=== PATIENT | male | born 1955 | race Caucasian/White ===

== ENCOUNTER 2019-09-14 06:34 | Inpatient (IN) | payer MEDICARE ==
--- NOTE | 2019-09-14 07:14 | ED ---
Abdominal Pain HPI - General Chief Complaint: Abdominal Pain Stated Complaint: Abd Pain Time Seen by Provider: 09/14/19 06:44 Source: patient, EMS Mode of arrival: EMS Limitations: no limitations - History of Present Illness Initial Comments: Patient is a 63-year-old male, history of hypertension, diabetes, heart disease, presenting to the emergency Department as a transfer from [facility] secondary to epigastric pain, distal ureteral stone, and concerned for gastric outlet syndrome. Patient presented to [facility] yesterday evening after dinner with the sudden onset of epigastric pain. Patient states he had some grilled chicken, some vegetables and then developed a sudden onset of epigastric pain shortly after. Patient describes the pain as constant, achy with a band like tightness around his upper abdomen. He also has some left flank pain. Patient states he has had kidney stones in the past and thought that could've been at but the severe nature it felt different so he wanted to be seen. He denied having any chest pain, shortness of breath, vomiting or diarrhea. He denies any previous abdominal surgeries. Computed tomography scan revealed a 5 mm stone in the mid ureter, a distended stomach with concern for gastric outlet obstruction. She was given fluids, pain control. He is currently describing the pain stone epigastric area, rates it a 5 out of 6. He denies any nausea at this time but states he does get occasional waves of it. He denies any recent fever or chills. He denies any current chest pain or shortness of breath. He has no further complaints at this time. Upon arrival to the ER, patient did arrive febrile to 100, slightly hypertensive at 187/95, rest of vitals are normal. - Related Data Home Medications Medication Instructions Recorded Confirmed Aspirin EC [Ecotrin] 325 mg PO DAILY 09/14/19 09/14/19 Atorvastatin [Lipitor] 20 mg PO DAILY 09/14/19 09/14/19 Benazepril HCl 40 mg PO DAILY 09/14/19 09/14/19 Citalopram Hydrobromide [CeleXA] 40 mg PO DAILY 09/14/19 09/14/19 Dulaglutide [Trulicity] 1.5 mg SQ TH 09/14/19 09/14/19 Fenofibrate Nanocrystallized 145 mg PO DAILY 09/14/19 09/14/19 [Fenofibrate] Finasteride [Proscar] 5 mg PO DAILY 09/14/19 09/14/19 Furosemide [Lasix] 40 mg PO DAILY 09/14/19 09/14/19 Insulin Aspart Protam & Aspart 65 unit SQ BID 09/14/19 09/14/19 [NovoLOG MIX 70-30 Flexpen] Metoprolol Succinate [Toprol XL] 100 mg PO DAILY 09/14/19 09/14/19 Pantoprazole Sodium [Protonix] 40 mg PO DAILY 09/14/19 09/14/19 Potassium Chloride [Klor-Con 10] 20 meq PO DAILY 09/14/19 09/14/19 Tamsulosin [Flomax] 0.4 mg PO DAILY 09/14/19 09/14/19 metFORMIN HCL [Glucophage] 1,000 mg PO BID 09/14/19 09/14/19 Previous Rx's Medication Instructions Recorded Hydrocodone/Acetaminophen [[place] 1 tab PO Q6HR PRN #10 tab 09/16/19 5-325] Levofloxacin [Levaquin] 500 mg PO DAILY 5 Days #5 tab 09/17/19 Allergies Allergy/AdvReac Type Severity Reaction Status Date / Time No Known Allergies Allergy Verified 09/14/19 07:30 Review of Systems ROS Statement: Those systems with pertinent positive or pertinent negative responses have been documented in the HPI. ROS Other: All systems not noted in ROS Statement are negative. Past Medical History Past Medical History: Asthma, Diabetes Mellitus History of Any Multi-Drug Resistant Organisms: None Reported Past Surgical History: Heart Catheterization With Stent Smoking Status: Never smoker Past Alcohol Use History: None Reported Past Drug Use History: None Reported - Past Family History Father Additional Family Medical History / Comment(s): Father at age 69 from a choking episode. Mother Additional Family Medical History / Comment(s): Mother is alive at 86 with no major medical problems. Sister(s) Additional Family Medical History / Comment(s): Patient has one sister with spinal problems. Patient has one brother with diabetes and coronary artery disease. Patient has 2 children, girls with no major medical problems. General Exam - General Exam Comments Initial Comments: GENERAL: Patient is well-developed and well-nourished. Patient is nontoxic and in no acute distress, does appear uncomfortable. HEAD: Atraumatic, normocephalic. EYES: Pupils equal round and reactive to light, extraocular movements intact, sclera anicteric, conjunctiva are normal. Eyelids were unremarkable. ENT: TMs normal, nares patent, oropharynx clear without exudates. Moist mucous membranes. NECK: Normal range of motion, supple without lymphadenopathy or JVD. LUNGS: Unlabored respirations. Breath sounds clear to auscultation bilaterally and equal. No wheezes rales or rhonchi. HEART: Regular rate and rhythm without murmurs, rubs or gallops. ABDOMEN: Abdomen is distended, hard over the epigastric area, tender over the entire upper abdomen, left side of the abdomen. Normoactive bowel sounds. No rebound. : Deferred MUSCULOSKELETAL: Normal extremities with adequate strength and normal range of motion, no pitting or edema. No clubbing or cyanosis. NEUROLOGICAL: Patient is alert and oriented x 3. Motor and sensory are also intact. Cranial nerves II through XII grossly intact. Normal speech, normal gait. Symmetrical smile. PSYCH: Normal mood, normal affect. SKIN: Warm, Dry, normal turgor, no rashes or lesions noted. Limitations: no limitations Course Vital Signs 09/14/19 09/14/19 09/14/19 06:42 07:29 09:18 Temperature 100 F H 100.2 F H 99.0 F Pulse Rate 82 90 91 Respiratory 18 18 18 Rate Blood Pressure 187/95 178/98 144/84 O2 Sat by Pulse 95 95 95 Oximetry Medical Decision Making - Medical Decision Making Patient is a 63-year-old male here as a transfer from [facility] for possible gastric outlet obstruction as well as a 5 mm left distal ureteral stone. Patient did arrive febrile to 100.2. Patient has epigastric distention, pain, left flank pain. Labs and imaging were reviewed from [facility]. We did repeat the labs showed a white count of 12, glucose was elevated at 200. Patient is pain has been controlled with medicine, we did give him a gram of Rocephin as well as ibuprofen by IV for fever. Start him on fluids Patient will be admitted with GI consult. Patient was accepted by Dr. Rock. Case discussed with Dr. Oden. - Lab Data Result diagrams: 09/17/19 07:19 09/16/19 07:30 Lab Results 07/20/20 07/20/20 07/20/20 Range/Units 07:49 07:49 07:49 WBC 12.8 H (3.8-10.6) k/uL RBC 5.59 (4.30-5.90) m/uL Hgb 15.2 (13.0-17.5) gm/dL Hct 47.9 (39.0-53.0) % MCV 85.6 (80.0-100.0) fL MCH 27.2 (25.0-35.0) pg MCHC 31.8 (31.0-37.0) g/dL RDW 13.7 (11.5-15.5) % Plt Count 169 (150-450) k/uL Neutrophils % 88 % Lymphocytes % 4 % Monocytes % 6 % Eosinophils % 1 % Basophils % 0 % Neutrophils # 11.3 H (1.3-7.7) k/uL Lymphocytes # 0.5 L (1.0-4.8) k/uL Monocytes # 0.7 (0-1.0) k/uL Eosinophils # 0.1 (0-0.7) k/uL Basophils # 0.0 (0-0.2) k/uL Sodium 137 (137-145) mmol/L Potassium 4.5 (3.5-5.1) mmol/L Chloride 105 (98-107) mmol/L Carbon Dioxide 23 (22-30) mmol/L Anion Gap 9 mmol/L BUN 14 (9-20) mg/dL Creatinine 0.81 (0.66-1.25) mg/dL Est GFR (CKD-EPI)AfAm >90 (>60 ml/min/1.73 sqM) Est GFR (CKD-EPI)NonAf >90 (>60 ml/min/1.73 sqM) Glucose 224 H (74-99) mg/dL Plasma Lactic Acid [place] 1.8 (0.7-2.0) mmol/L Calcium 9.1 (8.4-10.2) mg/dL Total Bilirubin 0.8 (0.2-1.3) mg/dL AST 31 (17-59) U/L ALT 33 (4-49) U/L Alkaline Phosphatase 84 (38-126) U/L Total Protein 7.1 (6.3-8.2) g/dL Albumin 4.5 (3.5-5.0) g/dL Lipase 34 (23-300) U/L Urine Color Urine Appearance (Clear) Urine pH (5.0-8.0) Ur Specific [place] (1.001-1.035) Urine Protein (Negative) Urine Glucose (UA) (Negative) Urine Ketones (Negative) Urine Blood (Negative) Urine Nitrite (Negative) Urine Bilirubin (Negative) Urine Urobilinogen (<2.0) mg/dL Ur Leukocyte Esterase (Negative) Urine RBC (0-5) /hpf Urine WBC (0-5) /hpf Ur Squamous Epith Cells (0-4) /hpf Urine Mucus (None) /hpf 09/14/19 Range/Units 08:03 WBC (3.8-10.6) k/uL RBC (4.30-5.90) m/uL Hgb (13.0-17.5) gm/dL Hct (39.0-53.0) % MCV (80.0-100.0) fL MCH (25.0-35.0) pg MCHC (31.0-37.0) g/dL RDW (11.5-15.5) % Plt Count (150-450) k/uL Neutrophils % % Lymphocytes % % Monocytes % % Eosinophils % % Basophils % % Neutrophils # (1.3-7.7) k/uL Lymphocytes # (1.0-4.8) k/uL Monocytes # (0-1.0) k/uL Eosinophils # (0-0.7) k/uL Basophils # (0-0.2) k/uL Sodium (137-145) mmol/L Potassium (3.5-5.1) mmol/L Chloride (98-107) mmol/L Carbon Dioxide (22-30) mmol/L Anion Gap mmol/L BUN (9-20) mg/dL Creatinine (0.66-1.25) mg/dL Est GFR (CKD-EPI)AfAm (>60 ml/min/1.73 sqM) Est GFR (CKD-EPI)NonAf (>60 ml/min/1.73 sqM) Glucose (74-99) mg/dL Plasma Lactic Acid Barry (0.7-2.0) mmol/L Calcium (8.4-10.2) mg/dL Total Bilirubin (0.2-1.3) mg/dL AST (17-59) U/L ALT (4-49) U/L Alkaline Phosphatase (38-126) U/L Total Protein (6.3-8.2) g/dL Albumin (3.5-5.0) g/dL Lipase (23-300) U/L Urine Color Yellow Urine Appearance Clear (Clear) Urine pH 6.5 (5.0-8.0) Ur Specific [place] 1.040 H (1.001-1.035) Urine Protein 3+ H (Negative) Urine Glucose (UA) 3+ H (Negative) Urine Ketones 1+ H (Negative) Urine Blood Small H (Negative) Urine Nitrite Negative (Negative) Urine Bilirubin Negative (Negative) Urine Urobilinogen <2.0 (<2.0) mg/dL Ur Leukocyte Esterase Negative (Negative) Urine RBC 20 H (0-5) /hpf Urine WBC 3 (0-5) /hpf Ur Squamous Epith Cells <1 (0-4) /hpf Urine Mucus Rare H (None) /hpf Disposition Clinical Impression: Epigastric pain, Left ureteral stone, Febrile Disposition: ADMITTED IP TO THIS [facility] Condition: Good Decision Date: 09/14/19 Decision Time: 09:09
[2019-09-14] MEDS ORDERED: cefTRIAXone IN SWFI 1,000 MG/10 ML SYRINGE IVP STA (07:44)
[2019-09-14] MEDS ORDERED: IBUPROFEN IV 400 MG in SODIUM CHLORIDE 0.9% 100 ML IV ONE (07:45)
[2019-09-14 07:57] LABS: Basophils % (A) 0 %; Eosinophils # (A) 0.1 k/uL (0-0.7); Eosinophils % (A) 1 %; HCT 47.9 % (39.0-53.0); HGB 15.2 gm/dL (13.0-17.5); Lymphocytes # (A) 0.5 k/uL (1.0-4.8); Lymphocytes % (A) 4 %; MCH 27.2 pg (25.0-35.0); MCHC 31.8 g/dL (31.0-37.0); MCV 85.6 fL (80.0-100.0); Mean Platelet Volume 6.9; Monocytes # (A) 0.7 k/uL (0-1.0); Monocytes % (A) 6 %; Neutrophils # (A) 11.3 k/uL (1.3-7.7); Neutrophils % (A) 88 %; Platelet Count 169 k/uL (150-450); RBC 5.59 m/uL (4.30-5.90); RDW 13.7 % (11.5-15.5); WBC 12.8 k/uL (3.8-10.6)
[2019-09-14 08:09] LABS: ALT 33 U/L (4-49); AST 31 U/L (17-59); African American GFR (CKD) >90 (>60 ml/min/1.73 sqM); Albumin 4.5 g/dL (3.5-5.0); Alkaline Phosphatase 84 U/L (38-126); Anion Gap 9 mmol/L; Blood Urea Nitrogen 14 mg/dL (9-20); Calcium 9.1 mg/dL (8.4-10.2); Carbon Dioxide 23 mmol/L (22-30); Chloride 105 mmol/L (98-107); Glucose 224 mg/dL (74-99); Non-African American GFR(CKD) >90 (>60 ml/min/1.73 sqM); Potassium 4.5 mmol/L (3.5-5.1); Sodium 137 mmol/L (137-145); Total Bilirubin 0.8 mg/dL (0.2-1.3); Total Protein 7.1 g/dL (6.3-8.2)
[2019-09-14 08:11] LABS: Appearance,Urine Clear (Clear); Bilirubin,Urine Negative (Negative); Blood,Urine Small (Negative); Color,Urine Yellow; Glucose,Urine (UA) 3+ (Negative); Ketones,Urine 1+ (Negative); Leukocyte Esterase,Urine Negative (Negative); Mucus,Urine Rare /hpf; Nitrite,Urine Negative (Negative); PH, Urine 6.5 (5.0-8.0); Protein,Urine 3+ (Negative); RBC,Urine 20 /hpf (0-5); Squamous Epithelial Cell,Urine <1 /hpf (0-4); Urobilinogen,Urine <2.0 mg/dL (<2.0); WBC,Urine 3 /hpf (0-5)
[2019-09-14] MEDS ORDERED: SODIUM CHLORIDE 0.9% 500 ML 500 ML IV STA (08:52)
[2019-09-14] MEDS ORDERED: NALOXONE 0.4 MG/ML 1 ML VIAL IV PRN (09:04)
[2019-09-14] MEDS ORDERED: ONDANSETRON 4 MG/2 ML VIAL IVP PRN (09:04)
[2019-09-14] MEDS: KETOROLAC 30 MG/ML 1 ML VIAL IVP PRN ×2 (09:15→15:17)
[2019-09-14] MEDS: SODIUM CHLORIDE 0.9% 1,000 ML IV SCH ×2 (09:17→20:50)
--- NOTE | 2019-09-14 10:03 | US ---
EXAMINATION TYPE: US abdomen limited DATE OF EXAM: 09/14/2019 COMPARISON: NONE CLINICAL HISTORY: RUQ pain. RUQ pain exam limited due to body habitus EXAM MEASUREMENTS: Liver Length: 20.5 cm Gallbladder Wall: .3 cm CBD: .4 cm Right Kidney: 13.6 x 7.1 x 5.5 cm Pancreas: Obscured by bowel gas Liver: Increased attenuation limited due to body habitus Gallbladder: No stones seen Evidence for sonographic Fitch's sign: No CBD: wnl Right Kidney: Hypoechoic area upper pole 2.0 x 1.7 x 2.3 cm IMPRESSION: Exam is limited. Correlate for hepatic steatosis, there is hepatomegaly. Probable cortica l cyst right kidney.
--- NOTE | 2019-09-14 12:10 | P.GSCN ---
History of Present Illness Consult date: 09/14/19 History of present illness: The patient is a 63-year-old gentleman transferred from [facility] because of abdominal pain, epigastric is a possible gastric outlet obstruction. The patient also had a midureteral stone on the left side that we are asked to evaluate. Patient presented to the emergency room in [place] with epigastric and right upper quadrant pain and nausea and vomiting. He has had mid spine low back pain that he thought was due to his back. The patient is morbidly obese. He did pass a stone out 7 years ago. He has had no flank pain and no left lower quadrant pain. The CAT scan showed a 5 mm mid ureteral stone on the left without hydronephrosis. There are no other stones. He does have renal cysts. He does have enlarged prostate with some indentation on the bladder. The patient is asymptomatic at present. There are no voiding issues or back issues. He did perhaps have some blood a few days ago in the urine. He had an ultras ound of the abdomen here which showed a renal cyst but otherwise no hydronephrosis. Review of Systems - EENT Ears, nose, mouth and throat: Reports dysphagia - Gastrointestinal Reports abdominal pain, Reports belching, Reports bloating - Genitourinary Reports as per HPI - Musculoskeletal Reports low back pain Past Medical History Past Medical History: Atrial Fibrillation, Asthma, Coronary Artery Disease (CAD), Diabetes Mellitus, Hyperlipidemia, Hypertension History of Any Multi-Drug Resistant Organisms: None Reported Past Surgical History: Heart Catheterization With Stent Past Anesthesia/Blood Transfusion Reactions: No Reported Reaction Date of Last Stent Placement:: 05/30/2012 Smoking Status: Never smoker Past Alcohol Use History: None Reported Past Drug Use History: None Reported Medications and Allergies Home Medications Medication Instructions Recorded Confirmed Type Aspirin EC [Ecotrin] 325 mg PO DAILY 09/14/19 09/14/19 History Atorvastatin [Lipitor] 20 mg PO DAILY 09/14/19 09/14/19 History Benazepril HCl 40 mg PO DAILY 09/14/19 09/14/19 History Citalopram Hydrobromide [CeleXA] 40 mg PO DAILY 09/14/19 09/14/19 History Dulaglutide [Trulicity] 1.5 mg SQ TH 09/14/19 09/14/19 History Fenofibrate Nanocrystallized 145 mg PO DAILY 09/14/19 09/14/19 History [Fenofibrate] Finasteride [Proscar] 5 mg PO DAILY 09/14/19 09/14/19 History Furosemide [Lasix] 40 mg PO DAILY 09/14/19 09/14/19 History Insulin Aspart Protam & Aspart 65 unit SQ BID 09/14/19 09/14/19 History [NovoLOG MIX 70-30 Flexpen] Metoprolol Succinate [Toprol XL] 100 mg PO DAILY 09/14/19 09/14/19 History Pantoprazole Sodium [Protonix] 40 mg PO DAILY 09/14/19 09/14/19 History Potassium Chloride [Klor-Con 10] 20 meq PO DAILY 09/14/19 09/14/19 History Tamsulosin [Flomax] 0.4 mg PO DAILY 09/14/19 09/14/19 History metFORMIN HCL [Glucophage] 1,000 mg PO BID 09/14/19 09/14/19 History Allergies Allergy/AdvReac Type Severity Reaction Status Date / Time No Known Allergies Allergy Verified 09/14/19 07:30 Surgical - Exam Vital Signs Temp Pulse Resp BP Pulse Ox 100 F H 82 18 187/95 95 09/14/19 06:42 09/14/19 06:42 09/14/19 06:42 09/14/19 06:42 09/14/19 06:42 - General well developed, well nourished, obese - Eyes PERRL - ENT no hearing loss - Neck no masses, trachea midline - Respiratory normal expansion, normal respiratory effort - Cardiovascular Rhythm: regular - Abdomen Abdomen: soft, non tender, distended Hernia: none - Genitourinary normal penis with no external lesions, testicles present - Integumentary no rash, no growths - Neurologic normal coordination, normal sensation - Musculoskeletal normal gait, normal posture - Psychiatric oriented to time, oriented to person, oriented to place, speech is normal, memory intact Results - Labs 09/14/19 07:49 09/14/19 07:49 Abnormal Lab Results - Last 24 Hours (Table) 09/14/19 09/14/19 09/14/19 Range/Units 07:49 07:49 08:03 WBC 12.8 H (3.8-10.6) k/uL Neutrophils # 11.3 H (1.3-7.7) k/uL Lymphocytes # 0.5 L (1.0-4.8) k/uL Glucose 224 H (74-99) mg/dL Ur Specific [place] 1.040 H (1.001-1.035) Urine Protein 3+ H (Negative) Urine Glucose (UA) 3+ H (Negative) Urine Ketones 1+ H (Negative) Urine Blood Small H (Negative) Urine RBC 20 H (0-5) /hpf Urine Mucus Rare H (None) /hpf Diabetes panel 09/14/19 Range/Units 07:49 Sodium 137 (137-145) mmol/L Potassium 4.5 (3.5-5.1) mmol/L Chloride 105 (98-107) mmol/L Carbon Dioxide 23 (22-30) mmol/L BUN 14 (9-20) mg/dL Creatinine 0.81 (0.66-1.25) mg/dL Glucose 224 H (74-99) mg/dL Calcium 9.1 (8.4-10.2) mg/dL AST 31 (17-59) U/L ALT 33 (4-49) U/L Alkaline Phosphatase 84 (38-126) U/L Total Protein 7.1 (6.3-8.2) g/dL Albumin 4.5 (3.5-5.0) g/dL Calcium panel 09/14/19 Range/Units 07:49 Calcium 9.1 (8.4-10.2) mg/dL Albumin 4.5 (3.5-5.0) g/dL Pituitary panel 09/14/19 Range/Units 07:49 Sodium 137 (137-145) mmol/L Potassium 4.5 (3.5-5.1) mmol/L Chloride 105 (98-107) mmol/L Carbon Dioxide 23 (22-30) mmol/L BUN 14 (9-20) mg/dL Creatinine 0.81 (0.66-1.25) mg/dL Glucose 224 H (74-99) mg/dL Calcium 9.1 (8.4-10.2) mg/dL Adrenal panel 09/14/19 Range/Units 07:49 Sodium 137 (137-145) mmol/L Potassium 4.5 (3.5-5.1) mmol/L Chloride 105 (98-107) mmol/L Carbon Dioxide 23 (22-30) mmol/L BUN 14 (9-20) mg/dL Creatinine 0.81 (0.66-1.25) mg/dL Glucose 224 H (74-99) mg/dL Calcium 9.1 (8.4-10.2) mg/dL Total Bilirubin 0.8 (0.2-1.3) mg/dL AST 31 (17-59) U/L ALT 33 (4-49) U/L Alkaline Phosphatase 84 (38-126) U/L Total Protein 7.1 (6.3-8.2) g/dL Albumin 4.5 (3.5-5.0) g/dL - Imaging CT scan - abdomen: report reviewed CT scan - pelvis: report reviewed US - abdomen: report reviewed, image reviewed US - pelvic: report reviewed, image reviewed Assessment and Plan Assessment: Impression: Midepigastric abdominal pain. Left ureteral stone without hydronephrosis. Morbid obesity, diabetes, coronary artery disease. Recommendations: His history is very vague and not clear to identify cause of his epigastric pain. Whether the stone is causing this or he truly has gastric outlet obstruction is indeterminate. He did not describe any flank left-sided abdominal or left lower quadrant pain. There is no hydronephrosis on the computed tomography scan he was not even aware that he had a stone. At this point time since he is asymptomatic and there is no hydronephrosis the option of spontaneous passage would be appropriate. He is interested in that. See how he does overnight before making further decisions as to final management of the stone. I will follow this patient
--- NOTE | 2019-09-14 15:15 | P.HPIM ---
History of Present Illness H&P Date: 09/14/19 Chief Complaint: abd pain History of Present Illness This is a 63-year-old male patient of Dr. Rock with past medical history of coronary artery disease status post [address] Meza, his founding partner is Dr. Cheney, history of atrial fibrillation, diabetes mellitus type 2, hypertension, hyperlipidemia, mild intermittent asthma. Patient states that he initially developed abdominal pain under his ribs. He denies any nausea vomiting. He did have a normal bowel movement yesterday. Patient also states the pain started in the front and he also has had lower back pain from doing work but does not associated with abdominal pain. He has had no previous abdominal surgeries. He is tender in the right upper quadrant. No epigastric tenderness. Patient was initially seen at outside facility and transferred to [facility] for further evaluation. CAT scan was reported as 5 mm stone in the mid ureter, a distended stomach with concern for gastric outlet obstruction. Temperature max 100.2, heart rate 90, blood pressure 178/98, pulse ox 95% on room air. WBC 12.8, otherwise blood sugar 224, normal electrolytes and renal function, normal function tests. Lipase 34. Urinalysis clear with nitrate and leukoesterase negative. 3+ protein glucose and ketones 1+. [facility] and consult requested with GI and urology. Abdominal ultrasound ordered. Review of Systems Constitutional: No fever, no chills, no night sweats. No weight change. No we akness, fatigue or lethargy. No daytime sleepiness. EENT: No headache. No blurred vision or double vision, no loss of vision. No loss of Hearing, no ringing in the ears, no dizziness. No nasal drainage or congestion. No epistaxis. No sore throat. Lungs: No shortness of breath, cough, no sputum production. No wheezing. Cardiovascular: No chest pain, no lower extremity edema. No palpitations. No paroxysmal nocturnal dyspnea. No orthopnea. No lightheadedness or dizziness. No syncopal episodes. Abdominal: Reports abdominal pain. No nausea, vomiting. No diarrhea. No constipation. No bloody or tarry stools.. No loss of appetite. Genitourinary: No dysuria, increased frequency, urgency. No urinary retention. Musculoskeletal: No myalgias. No muscle weakness, no gait dysfunction, no frequent falls. No back pain. No neck pain. Integumentary: No wounds, no lesions. No rash or pruritus. No unusual bruising. No change in hair or nails. Neurologic: No aphasia. No facial droop. No change in mentation. No head injury. No headache. No paralysis. No paresthesia. Psychiatric: No depression. No anxiety. No mood swings. Endocrine: No abnormal blood sugars. No weight change. No excessive sweating or thirst. No cold intolerance. Physical Examination Gen: This is a 63-year-old morbidly obese male. He is resting in the ER stretcher and appears to be comfortable and in no acute distress. HEENT: Head is atraumatic, normocephalic. Pupils equal, round. Sclerae is anicteric. NECK: Supple. No JVD. No lymphadenopathy. No thyromegaly. LUNGS: Clear to auscultation. No wheezes or rhonchi. No intercostal retractions. HEART: Regular rate and rhythm. No murmur. ABDOMEN: Soft. Bowel sounds are present. No masses. Right upper quadrant ten derness. No epigastric tenderness. EXTREMITIES: No pedal edema. No calf tenderness. NEUROLOGICAL: Patient is awake, alert and oriented x3. Cranial nerves 2 through 12 are grossly intact. Assessment and Plan 1. Possible gastric outlet obstruction. Suspected diabetic gastroparesis. Consult with GI. 2. Right upper quadrant tenderness. Abdominal ultrasound ordered rule out cholecystitis. 3. Renal stone. Consult with urology next he'll. 4. Hypertension. Continue Toprol-XL, benazepril 40 mg daily, Lasix 40 mg daily. 5. Hyperlipidemia. Statin. 6. History of coronary artery disease. Continue aspirin 325 mg daily, Lipitor 20 mg daily, Toprol-XL 100 mg daily. 7. Benign prostatic hypertrophy. Continue Flomax 0.4 mg daily and Proscar 5 mg daily. 8. History of atrial fibrillation, paroxysmal. Continue Toprol-XL. 9. Mild intermittent asthma, no exacerbation. 10. Diabetes mellitus type 2. Continue NovoLog Mix 70/30 65 units twice daily, NovoLog scale. Hold metformin due to CAT scan. 11. Recurrent depression. Continue Celexa 40 mg daily. 12. Gastroesophageal reflux disease, GI prophylaxis. Continue Protonix. 13. DVT prophylaxis. Heparin subcu. 14. COVID-19 testing. Patient will be admitted to the hospital for a minimum of 2 night stay. Discharge plan: Return home. Impression and plan of care have been directed as dictated by the signing physician. Lamar Wright nurse practitioner acting as scribe for signing physician. Past Medical History Past Medical History: Atrial Fibrillation, Asthma, Coronary Artery Disease (CAD), Diabetes Mellitus, Hyperlipidemia, Hypertension History of Any Multi-Drug Resistant Organisms: None Reported Past Surgical History: Heart Catheterization With Stent Additional Past Surgical History / Comment(s): Hemorrhoid repair. Smoking Status: Former smoker Past Alcohol Use History: None Reported Additional Past Alcohol Use History / Comment(s): Patient was smoker 2 packs per day for 13 years and quit in 1986. He denies any marijuana use, illicit drug use or alcohol use. He lives at home with his . Past Drug Use History: None Reported - Past Family History Father Additional Family Medical History / Comment(s): Father at age 69 from a choking episode. Mother Additional Family Medical History / Comment(s): Mother is alive at 86 with no major medical problems. Sister(s) Additional Family Medical History / Comment(s): Patient has one sister with spinal problems. Patient has one brother with diabetes and coronary artery disease. Patient has 2 children, girls with no major medical problems. Medications and Allergies Home Medications Medication Instructions Recorded Confirmed Type Aspirin EC [Ecotrin] 325 mg PO DAILY 09/14/19 09/14/19 History Atorvastatin [Lipitor] 20 mg PO DAILY 09/14/19 09/14/19 History Benazepril HCl 40 mg PO DAILY 09/14/19 09/14/19 History Citalopram Hydrobromide [CeleXA] 40 mg PO DAILY 09/14/19 09/14/19 History Dulaglutide [Trulicity] 1.5 mg SQ TH 09/14/19 09/14/19 History Fenofibrate Nanocrystallized 145 mg PO DAILY 09/14/19 09/14/19 History [Fenofibrate] Finasteride [Proscar] 5 mg PO DAILY 09/14/19 09/14/19 History Furosemide [Lasix] 40 mg PO DAILY 09/14/19 09/14/19 History Insulin Aspart Protam & Aspart 65 unit SQ BID 09/14/19 09/14/19 History [NovoLOG MIX 70-30 Flexpen] Metoprolol Succinate [Toprol XL] 100 mg PO DAILY 09/14/19 09/14/19 History Pantoprazole Sodium [Protonix] 40 mg PO DAILY 09/14/19 09/14/19 History Potassium Chloride [Klor-Con 10] 20 meq PO DAILY 09/14/19 09/14/19 History Tamsulosin [Flomax] 0.4 mg PO DAILY 09/14/19 09/14/19 History metFORMIN HCL [Glucophage] 1,000 mg PO BID 09/14/19 09/14/19 History Allergies Allergy/AdvReac Type Severity Reaction Status Date / Time No Known Allergies Allergy Verified 09/14/19 07:30 Physical Exam Vitals: Vital Signs Temp Pulse Resp BP Pulse Ox 09/14/19 07:29 100.2 F H 90 18 178/98 95 09/14/19 06:42 100 F H 82 18 187/95 95 Intake and Output 09/13/19 09/14/19 09/14/19 22:59 06:59 14:59 Other: Weight 138.346 kg Results CBC & Chem 7: 09/14/19 07:49 09/14/19 07:49 Labs: Abnormal Lab Results - Last 24 Hours (Table) 09/14/19 09/14/19 09/14/19 Range/Units 07:49 07:49 08:03 WBC 12.8 H (3.8-10.6) k/uL Neutrophils # 11.3 H (1.3-7.7) k/uL Lymphocytes # 0.5 L (1.0-4.8) k/uL Glucose 224 H (74-99) mg/dL Ur Specific Howell 1.040 H (1.001-1.035) Urine Protein 3+ H (Negative) Urine Glucose (UA) 3+ H (Negative) Urine Ketones 1+ H (Negative) Urine Blood Small H (Negative) Urine RBC 20 H (0-5) /hpf Urine Mucus Rare H (None) /hpf Thrombosis Risk Factor Assmnt - DVT/VTE Prophylaxis DVT/VTE Prophylaxis: Pharmacologic Prophylaxis ordered
[2019-09-14] MEDS: PIPERACILLIN-TAZOBACTAM 3.375 GM in SODIUM CHLORIDE 0.9% 100 ML IVPB SCH (15:17)
--- NOTE | 2019-09-14 17:47 | CONS ---
CONSULTATION DATE OF DICTATION: 09/14/2019 REASON FOR CONSULTATION: Severe right upper quadrant abdominal pain. HISTORY OF PRESENT ILLNESS: The patient is a 63-year-old pleasant white male with history of coronary artery disease, hypertension, hyperlipidemia and diabetes mellitus who went to the emergency room at [facility] yesterday when he presented with acute onset of severe epigastric and right upper quadrant abdominal pain that started yesterday afternoon. The pain continued to progressively get worse. He went to [facility], where he had a CT of the abdomen and pelvis done that showed a small 5 mm stone in the ureter and distended stomach with concern about gastric outlet obstruction. The patient states that he has been having low-grade fever for the last 2 days. Temperature at [facility] was 100.2, and the patient was subsequently transferred to [facility]. T-max was 100.2. This morning he is feeling much better. He feels that the abdominal pain has significantly improved. No nausea, no vomiting. No change in bowel habits. He denies any prior history of peptic ulcer disease or recent NSAID use. No prior history of any gallbladder problems. PAST MEDICAL HISTORY: His past medical history is significant for diabetes mellitus, hypertension, hyperlipidemia, coronary artery disease, asthma, atrial fibrillation. MEDICATIONS: Medications at home include Glucophage, Flomax, K-Varsha, Protonix, Toprol, Lasix, Proscar, fenofibrate, Trulicity, Celexa, Lipitor, Ecotrin, and metformin. SOCIAL HISTORY: No smoking. No alcohol use. FAMILY HISTORY: Unremarkable. ALLERGIES: NONE. REVIEW OF SYSTEMS: CARDIOPULMONARY: No chest pain or shortness of breath. GENITOURINARY: No dysuria or hematuria. MUSCULOSKELETAL: Unremarkable. SKIN: Unremarkable. ENDOCRINE: Unremarkable. PSYCHIATRIC: Unremarkable. NEUROLOGY: Unremarkable. ENT/VISION: Unremarkable. CONSTITUTIONAL: No recent weight loss. No fever, chills, night sweats. PHYSICAL EXAMINATION: He appears comfortable. No apparent distress. T-max 100.2, blood pressure 154/80, pulse rate 88. HEENT examination unremarkable. Conjunctivae pink. Sclerae anicteric. Oral cavity no lesions. NECK: No JVD or lymph node enlargement. CHEST: Clear to auscultation. HEART: Regular rate and rhythm. ABDOMEN: Soft. Severe tenderness in the right upper quadrant area as well as in the epigastric area. There were no rebound or rigidity. Bowel sounds are positive. EXTREMITIES: No pedal edema. SKIN: No rashes. NEUROLOGIC: Alert and oriented x3. No focal deficits. LABS: Labs from today show WBC 12.8, hemoglobin 15.2, platelets normal. Neutrophils 11.3. ALT, AST, T-bilirubin and alkaline phosphatase are normal. Lipase is normal. IMPRESSION: Acute onset of severe epigastric and right upper quadrant abdominal pain that started yesterday afternoon with low-grade fever and mild leukocytosis. Possibility of acute cholecystitis is being considered. The patient did have a CT at an outside hospital report, of which is not available, but apparently it did show some evidence of possible gastric outlet obstruction. He did have ultrasound of the gallbladder done this morning. The gallbladder wall was not thickened and there was no evidence of acute cholecystitis. Evidence of hepatic steatosis was noted. No gallstones were identified. With the patient's clinical presentation, possibility of peptic ulcer disease versus acute cholecystitis is being considered. The patient does have mild leukocytosis and low-grade fever also. RECOMMENDATIONS: 1. Discussed ultrasound as well as CT scan findings with the patient. 2. Will start him on broad-spectrum antibiotics with Zosyn. 3. Clear liquid diet. 4. Will obtain HIDA scan to evaluate for acute cholecystitis. 5. If the HIDA scan is negative, I will proceed with an upper endoscopy tomorrow. 6. Continue with PPI with Protonix 40 mg twice daily. 7. Will follow with you closely. Thank you for this consultation. MMODL / IJN: [id number] /
--- NOTE | 2019-09-14 18:44 | NM ---
EXAMINATION TYPE: NM hepatobiliary wo EF DATE OF EXAM: 09/14/2019 COMPARISON: NONE HISTORY: TECHNIQUE: After the intravenous administration of 4.46 mCi Tc 99m Mebrofenin hepatobiliary scintigra phy is performed. Immediate images post injection. FINDINGS: There is prompt uptake of the tracer by the liver. At 15 minutes there is tracer in the duodenum and no evidence of common bile duct obstruction. I see no focal liver defect. At 2 hours the tracer is es sentially cleared from the liver and is all in the small bowel. There is no evidence of tracer accumu lation in the gallbladder. IMPRESSION: There is nonvisualization of the gallbladder suggestive of cystic duct obstruction and ac creek cholecystitis. No evidence of common bile duct obstruction.
[2019-09-14 20:09] LABS: Glucose,Whole Blood 334 mg/dL (75-99)
[2019-09-14] MEDS: INSULIN ASPART (NovoLOG) 100 UNIT/ML VIAL SQ SCH ×2 (20:25→21:00)
[2019-09-14] MEDS ORDERED: PIPERACILLIN-TAZOBACTAM 3.375 GM in SODIUM CHLORIDE 0.9% 100 ML IVPB SCH (21:00)
[2019-09-14] MEDS: PANTOPRAZOLE 40 MG/10 ML VIAL IVP SCH (21:00)
[2019-09-14] MEDS: HEPARIN SODIUM,PORCINE 5,000 UNIT/ML 1 ML VIAL SQ SCH (21:00)
[2019-09-14] MEDS: INSULN ASP PRT/INSULIN ASPART 100 UNIT/ML 10 ML VIAL SQ SCH (21:01)
[2019-09-15] MEDS: PIPERACILLIN-TAZOBACTAM 3.375 GM in SODIUM CHLORIDE 0.9% 100 ML IVPB SCH ×3 (00:09→17:56)
[2019-09-15] MEDS: KETOROLAC 30 MG/ML 1 ML VIAL IVP PRN (01:26)
[2019-09-15 06:59] LABS: Glucose,Whole Blood 181 mg/dL (75-99)
[2019-09-15] MEDS: lisinopriL 20 MG TAB PO SCH (08:13)
[2019-09-15] MEDS: TAMSULOSIN 0.4 MG CAP.ER.24H PO SCH (08:13)
[2019-09-15] MEDS: ATORVASTATIN 20 MG TAB PO SCH (08:13)
[2019-09-15] MEDS: POTASSIUM CHLORIDE ER 20 MEQ TAB.ER PO SCH (08:13)
[2019-09-15] MEDS: FENOFIBRATE 160 MG TAB PO SCH (08:14)
[2019-09-15] MEDS: FUROSEMIDE 40 MG TAB PO SCH (08:14)
[2019-09-15] MEDS: ASPIRIN 325 MG TAB PO SCH (08:14)
[2019-09-15] MEDS: CITALOPRAM HYDROBROMIDE 20 MG TAB PO SCH (08:14)
[2019-09-15] MEDS: PANTOPRAZOLE 40 MG/10 ML VIAL IVP SCH ×2 (08:14→22:22)
[2019-09-15] MEDS: FINASTERIDE 5 MG TAB PO SCH (08:14)
[2019-09-15] MEDS: HEPARIN SODIUM,PORCINE 5,000 UNIT/ML 1 ML VIAL SQ SCH ×2 (08:14→22:22)
[2019-09-15] MEDS: INSULN ASP PRT/INSULIN ASPART 100 UNIT/ML 10 ML VIAL SQ SCH ×2 (08:15→22:23)
[2019-09-15] MEDS: INSULIN ASPART (NovoLOG) 100 UNIT/ML VIAL SQ SCH ×3 (08:15→17:56)
[2019-09-15] MEDS: METOPROLOL SUCCINATE (ER) 100 MG TAB.ER.24H PO SCH (08:16)
[2019-09-15] MEDS: MORPHINE SULFATE 4 MG/ML SYRINGE IV PRN ×2 (08:24→13:02)
--- NOTE | 2019-09-15 10:08 | P.GSCN ---
<Keila Acosta - Last Filed: 09/15/19 09:55> History of Present Illness Consult date: 09/15/19 Reason for Consult: Right upper quadrant abdominal pain Requesting physician: Sadaf Whitaker History of present illness: CHIEF COMPLAINT: Right upper quadrant abdominal pain HISTORY OF PRESENT ILLNESS: 63 year old male who was transferred from [facility] secondary to right upper quadrant and epigastric pain. Patient was febrile upon admission with a T-max of 100.2. WBC 12.8 on admission. He was started on Zosyn. General surgery was consulted for further evaluation. Patient examined this morning at the bedside. He reports right upper quadrant abdominal pain that radiates to his back. Denies nausea or vomiting. He is afebrile this morning. PAST MEDICAL HISTORY: See list. PAST SURGICAL HISTORY: See list. SOCIAL HISTORY: No illicit drug use. REVIEW OF SYSTEMS: CONSTITUTIONAL: Reports fever. HEENT: Denies blurred vision, vision changes, or eye pain. Denies hemoptysis CARDIOVASCULAR: Denies chest pain or pressure. RESPIRATORY: No shortness of breath. GASTROINTESTINAL: Refer to HPI for pertinent findings HEMATOLOGIC: Denies bleeding disorders. GENITOURINARY: Denies any blood in urine. SKIN: Denies pruitis. Denies rash. PHYSICAL EXAM: VITAL SIGNS: Reviewed. GENERAL: Well-developed in no acute distress. HEENT: No sclera icterus. Extraocular movements grossly intact. Moist buccal mucosa. Head is atraumatic, normocephalic. ABDOMEN: Soft. Obese. Nondistended. Tenderness with palpation to right upper quadrant. NEUROLOGIC: Alert and oriented. Cranial nerves II through XII grossly intact. LABORATORY DATA: WBC 12.8. Hemoglobin 15.2. Platelet count 169. Lactic acid 1.8. Bilirubin 0.8. AST 31. ALT 33. IMAGING: HIDA scan: Nonvisualization of the gallbladder suggestive of cystic duct obstruction and acute cholecystitis. No evidence of common bile duct obstruction. ASSESSMENT: 1. Right upper quadrant abdominal pain 2. Acute cholecystitis, cystic duct obstruction PLAN: -NPO -Continue antibiotics -Patient to undergo lap arminda today with Dr. Nash Nurse practitioner note has been reviewed by physician. Signing provider agrees with the documented findings, assessment, and plan of care. Past Medical History Past Medical History: Atrial Fibrillation, Asthma, Coronary Artery Disease (CAD), Diabetes Mellitus, Hyperlipidemia, Hypertension History of Any Multi-Drug Resistant Organisms: None Reported Past Surgical History: Heart Catheterization With Stent Additional Past Surgical History / Comment(s): Hemorrhoid repair. Past Anesthesia/Blood Transfusion Reactions: No Reported Reaction Date of Last Stent Placement:: 05/30/2012 Smoking Status: Former smoker Past Alcohol Use History: None Reported Additional Past Alcohol Use History / Comment(s): Patient was smoker 2 packs per day for 13 years and quit in 1986. He denies any marijuana use, illicit drug use or alcohol use. He lives at home with his . Past Drug Use History: None Reported - Past Family History Father Additional Family Medical History / Comment(s): Father at age 69 from a choking episode. Mother Additional Family Medical History / Comment(s): Mother is alive at 86 with no major medical problems. Sister(s) Additional Family Medical History / Comment(s): Patient has one sister with spinal problems. Patient has one brother with diabetes and coronary artery disease. Patient has 2 children, girls with no major medical problems. Medications and Allergies Home Medications Medication Instructions Recorded Confirmed Type Aspirin EC [Ecotrin] 325 mg PO DAILY 09/14/19 09/14/19 History Atorvastatin [Lipitor] 20 mg PO DAILY 09/14/19 09/14/19 History Benazepril HCl 40 mg PO DAILY 09/14/19 09/14/19 History Citalopram Hydrobromide [CeleXA] 40 mg PO DAILY 09/14/19 09/14/19 History Dulaglutide [Trulicity] 1.5 mg SQ TH 09/14/19 09/14/19 History Fenofibrate Nanocrystallized 145 mg PO DAILY 09/14/19 09/14/19 History [Fenofibrate] Finasteride [Proscar] 5 mg PO DAILY 09/14/19 09/14/19 History Furosemide [Lasix] 40 mg PO DAILY 09/14/19 09/14/19 History Insulin Aspart Protam & Aspart 65 unit SQ BID 09/14/19 09/14/19 History [NovoLOG MIX 70-30 Flexpen] Metoprolol Succinate [Toprol XL] 100 mg PO DAILY 09/14/19 09/14/19 History Pantoprazole Sodium [Protonix] 40 mg PO DAILY 09/14/19 09/14/19 History Potassium Chloride [Klor-Con 10] 20 meq PO DAILY 09/14/19 09/14/19 History Tamsulosin [Flomax] 0.4 mg PO DAILY 09/14/19 09/14/19 History metFORMIN HCL [Glucophage] 1,000 mg PO BID 09/14/19 09/14/19 History Allergies Allergy/AdvReac Type Severity Reaction Status Date / Time No Known Allergies Allergy Verified 09/14/19 07:30 Surgical - Exam Vital Signs Temp Pulse Resp BP Pulse Ox 100 F H 82 18 187/95 95 09/14/19 06:42 09/14/19 06:42 09/14/19 06:42 09/14/19 06:42 09/14/19 06:42 Results - Labs 09/14/19 07:49 09/14/19 07:49 Abnormal Lab Results - Last 24 Hours (Table) 09/14/19 09/15/19 Range/Units 20:06 06:55 POC Glucose (mg/dL) 334 H 181 H (75-99) mg/dL <Roly Nash - Last Filed: 09/15/19 14:00> History of Present Illness History of present illness: As above. Patient with right upper quadrant pain and tenderness. HIDA scan results reviewed. Spoke with GI this morning. They will no longer plan on performing EGD. They agree with plans for laparoscopic cholecystectomy. We'll proceed with lap scopic cholecystectomy, possible open cholecystectomy at this time. Risks of bleeding, infection, bile leak, bile duct injury, retained common bile duct stone, trocar injury, conversion to an open procedure, hernia, anesthesia related complications were reviewed. The patient understands and wishes to proceed. I'll Surgical - Exam Vital Signs Temp Pulse Resp BP Pulse Ox 100 F H 82 18 187/95 95 09/14/19 06:42 09/14/19 06:42 09/14/19 06:42 09/14/19 06:42 09/14/19 06:42 Results - Labs 09/14/19 07:49 09/15/19 12:13 Abnormal Lab Results - Last 24 Hours (Table) 09/14/19 09/15/19 09/15/19 Range/Units 20:06 06:55 11:31 BUN (9-20) mg/dL Glucose (74-99) mg/dL POC Glucose (mg/dL) 334 H 181 H 145 H (75-99) mg/dL ALT (4-49) U/L 09/15/19 Range/Units 12:13 BUN 7 L (9-20) mg/dL Glucose 152 H (74-99) mg/dL POC Glucose (mg/dL) (75-99) mg/dL ALT 63 H (4-49) U/L Diabetes panel 09/15/19 Range/Units 12:13 Sodium 137 (137-145) mmol/L Potassium 3.9 (3.5-5.1) mmol/L Chloride 107 (98-107) mmol/L Carbon Dioxide 24 (22-30) mmol/L BUN 7 L (9-20) mg/dL Creatinine 0.74 (0.66-1.25) mg/dL Glucose 152 H (74-99) mg/dL Calcium 8.5 (8.4-10.2) mg/dL AST 52 (17-59) U/L ALT 63 H (4-49) U/L Alkaline Phosphatase 59 (38-126) U/L Total Protein 6.5 (6.3-8.2) g/dL Albumin 3.9 (3.5-5.0) g/dL Calcium panel 09/15/19 Range/Units 12:13 Calcium 8.5 (8.4-10.2) mg/dL Albumin 3.9 (3.5-5.0) g/dL Pituitary panel 09/15/19 Range/Units 12:13 Sodium 137 (137-145) mmol/L Potassium 3.9 (3.5-5.1) mmol/L Chloride 107 (98-107) mmol/L Carbon Dioxide 24 (22-30) mmol/L BUN 7 L (9-20) mg/dL Creatinine 0.74 (0.66-1.25) mg/dL Glucose 152 H (74-99) mg/dL Calcium 8.5 (8.4-10.2) mg/dL Adrenal panel 09/15/19 Range/Units 12:13 Sodium 137 (137-145) mmol/L Potassium 3.9 (3.5-5.1) mmol/L Chloride 107 (98-107) mmol/L Carbon Dioxide 24 (22-30) mmol/L BUN 7 L (9-20) mg/dL Creatinine 0.74 (0.66-1.25) mg/dL Glucose 152 H (74-99) mg/dL Calcium 8.5 (8.4-10.2) mg/dL Total Bilirubin 1.2 (0.2-1.3) mg/dL AST 52 (17-59) U/L ALT 63 H (4-49) U/L Alkaline Phosphatase 59 (38-126) U/L Total Protein 6.5 (6.3-8.2) g/dL Albumin 3.9 (3.5-5.0) g/dL
[2019-09-15 11:37] LABS: Glucose,Whole Blood 145 mg/dL (75-99)
[2019-09-15 12:50] LABS: ALT 63 U/L (4-49); AST 52 U/L (17-59); African American GFR (CKD) >90 (>60 ml/min/1.73 sqM); Albumin 3.9 g/dL (3.5-5.0); Alkaline Phosphatase 59 U/L (38-126); Anion Gap 6 mmol/L; Blood Urea Nitrogen 7 mg/dL (9-20); Calcium 8.5 mg/dL (8.4-10.2); Carbon Dioxide 24 mmol/L (22-30); Chloride 107 mmol/L (98-107); Glucose 152 mg/dL (74-99); Non-African American GFR(CKD) >90 (>60 ml/min/1.73 sqM); Potassium 3.9 mmol/L (3.5-5.1); Sodium 137 mmol/L (137-145); Total Bilirubin 1.2 mg/dL (0.2-1.3); Total Protein 6.5 g/dL (6.3-8.2)
[2019-09-15] MEDS ORDERED: ONDANSETRON 4 MG/2 ML VIAL ONE (13:01)
[2019-09-15] MEDS: SODIUM CHLORIDE 0.9% 1,000 ML IV SCH (13:05)
[2019-09-15] MEDS ORDERED: IV FLUID CONTINUATION 1,000 ML IV ONE (13:16)
[2019-09-15] MEDS ORDERED: LIDOCAINE 1% INJ 10MG/ML (20 ML MDV) ONE (14:11)
[2019-09-15] MEDS ORDERED: fentaNYL (PF) 50 MCG/ML 2 ML AMP ONE (14:11)
[2019-09-15] MEDS ORDERED: PHENYLEPHRINE-0.9% NACL SYG 1 MG/10 ML SYRINGE ONE (14:11)
[2019-09-15] MEDS ORDERED: NEOSTIGMINE 1 MG/ML 10 ML VIAL ONE (14:11)
[2019-09-15] MEDS ORDERED: PROPOFOL 10 MG/ML 20 ML VIAL IV ONE (14:11)
[2019-09-15] MEDS ORDERED: MIDAZOLAM 2 MG/2 ML VIAL ONE (14:11)
[2019-09-15] MEDS ORDERED: ROCURONIUM BROMIDE 10 MG/ML 5 ML VIAL IV ONE (14:11)
[2019-09-15] MEDS ORDERED: SUCCINYLCHOLINE CHLORIDE 100 MG/5 ML SYR IV ONE (14:11)
[2019-09-15] MEDS ORDERED: GLYCOPYRROLATE 0.2 MG/ML 2 ML VIAL ONE (14:11)
[2019-09-15] MEDS ORDERED: LACTATED RINGERS 1,000 ML IV ONE (14:39)
[2019-09-15] MEDS ORDERED: BUPIVACAIN-EPI 0.25%-1:200,000 30 ML VIAL SQ ONE ×2 (14:39)
--- NOTE | 2019-09-15 14:48 | P.PN ---
Subjective Progress Note Date: 09/15/19 History of Present Illness This is a 63-year-old male patient of Dr. Rock with past medical history of coronary artery disease status post [address] Meza, his advanced practice nurse is Dr. Cheney, history of atrial fibrillation, diabetes mellitus type 2, hypertension, hyperlipidemia, mild intermittent asthma. Patient states that he initially developed abdominal pain under his ribs. He denies any nausea vomiting. He did have a normal bowel movement yesterday. Patient also states the pain started in the front and he also has had lower back pain from doing work but does not associated with abdominal pain. He has had no previous abdominal surgeries. He is tender in the right upper quadrant. No epigastric tenderness. Patient was initially seen at outside facility and transferred to [facility] for further evaluation. CAT scan was reported as 5 mm stone in the mid ureter, a distended stomach with concern for gastric outlet obstruction. Temperature max 100.2, heart rate 90, blood pressure 178/98, pulse ox 95% on room air. WBC 12.8, otherwise blood sugar 224, normal electrolytes and renal function, normal function tests. Lipase 34. Urinalysis clear with nitrate and leukoesterase negative. 3+ protein glucose and ketones 1+. Patient to be admitted to the [facility] floor and consult requested with GI and urology. Abdominal ultrasound ordered. 09/14: Abdominal ultrasound was limited, hepatis steatosis, hepatomegaly, probab le cortical cyst right kidney. HIDA scan suggestive of cystic duct obstruction and acute cholecystitis. No evidence of common bile duct obstruction. A consult was placed with Dr. Nash and patient is scheduled for laparoscopic cholecystectomy today. Patient has been afebrile, heart rate 7097, blood pressure 168/87, pulse ox 95 on room air. Lab work this morning revealed electrolytes normal, creatinine 0.74, blood sugars running between 145 and 334. Coronavirus PCR not detected. Review of Systems Constitutional: No fever, no chills, no night sweats. No weight change. No weakness, fatigue or lethargy. No daytime sleepiness. EENT: No headache. No blurred vision or double vision, no loss of vision. No loss of Hearing, no ringing in the ears, no dizziness. No nasal drainage or congestion. No epistaxis. No sore throat. Lungs: No shortness of breath, cough, no sputum production. No wheezing. Cardiovascular: No chest pain, no lower extremity edema. No palpitations. No paroxysmal nocturnal dyspnea. No orthopnea. No lightheadedness or dizziness. No syncopal episodes. Abdominal: Reports continued right upper quadrant abdominal pain. No nausea, vomiting. No diarrhea. No constipation. No bloody or tarry stools. Genitourinary: No dysuria, increased frequency, urgency. No urinary retention. Musculoskeletal: No myalgias. No muscle weakness, no gait dysfunction, no frequent falls. No back pain. No neck pain. Integumentary: No wounds, no lesions. No rash or pruritus. No unusual bruising. No change in hair or nails. Neurologic: No aphasia. No facial droop. No change in mentation. No head injury. No headache. No paralysis. No paresthesia. Psychiatric: No depression. No anxiety. No mood swings. Endocrine: No abnormal blood sugars. No weight change. No excessive sweating or thirst. No cold intolerance. Physical Examination Gen: This is a 63-year-old morbidly obese male. He is resting in ch air and appears to be somewhat uncomfortable secondary to pain. HEENT: Head is atraumatic, normocephalic. Pupils equal, round. Sclerae is anicteric. NECK: Supple. No JVD. No lymphadenopathy. No thyromegaly. LUNGS: Clear to auscultation. No wheezes or rhonchi. No intercostal retractions. HEART: Regular rate and rhythm. No murmur. ABDOMEN: Soft. Bowel sounds are present. No masses. Right upper quadrant tenderness. No epigastric tenderness. EXTREMITIES: No pedal edema. No calf tenderness. Dorsalis pedis palpable bilaterally. NEUROLOGICAL: Patient is awake, alert and oriented x3. Cranial nerves 2 through 12 are grossly intact. Assessment and Plan 1. Possible gastric outlet obstruction. Suspected diabetic gastroparesis. Consult with GI. 2. Right upper quadrant tenderness secondary to acute cholecystitis. Consult with Dr. Nash appreciated. Laparoscopic cholecystectomy this afternoon. 3. Renal stone. Consult with urology appreciated. 4. Hypertension. Continue Toprol-XL, benazepril 40 mg daily, Lasix 40 mg daily. 5. Hyperlipidemia. Statin. 6. History of coronary artery disease. Continue aspirin 325 mg daily, Lipitor 20 mg daily, Toprol-XL 100 mg daily. 7. Benign prostatic hypertrophy. Continue Flomax 0.4 mg daily and Proscar 5 mg daily. 8. History of atrial fibrillation, paroxysmal. Continue Toprol-XL. 9. Mild intermittent asthma, no exacerbation. 10. Diabetes mellitus type 2. Continue NovoLog Mix 70/30 65 units twice daily, NovoLog scale. Hold metformin due to CAT scan. 11. Recurrent depression. Continue Celexa 40 mg daily. 12. Gastroesophageal reflux disease, GI prophylaxis. Continue Protonix. 13. DVT prophylaxis. Heparin subcu. 14. COVID-19 infection not present. Discharge plan: Return home. Impression and plan of care have been directed as dictated by the signing physician. Lamar Wright nurse practitioner acting as scribe for signing physician. Objective - Vital Signs Vital signs: Vital Signs Temp 98.3 F 09/15/19 04:20 Pulse 89 09/15/19 04:20 Resp 22 09/15/19 04:20 BP 168/87 09/15/19 04:20 Pulse Ox 95 09/15/19 04:20 Intake & Output 09/14/19 09/15/19 09/15/19 18:59 06:59 18:59 Intake Total 2049 Balance 2049 Weight 138.346 kg Intake: Intake, IV Titration 850 Amount Piperacillin-Tazobactam 3 100 .375 gm In Sodium Chloride 0.9% 100 ml @ 25 mls/hr IVPB Q8HR [facility] Rx# :[id number] Sodium Chloride 0.9% 1, 750 000 ml @ 75 mls/hr IV . [id number] [facility] Rx#:[id number] Oral 1200 Other: Voiding Method Toilet Toilet # Voids 1 1 - Labs CBC & Chem 7: 09/14/19 07:49 09/15/19 12:13 Labs: Abnormal Lab Results - Last 24 Hours (Table) 09/14/19 09/14/19 09/14/19 Range/Units 07:49 07:49 08:03 WBC 12.8 H (3.8-10.6) k/uL Neutrophils # 11.3 H (1.3-7.7) k/uL Lymphocytes # 0.5 L (1.0-4.8) k/uL Glucose 224 H (74-99) mg/dL POC Glucose (mg/dL) (75-99) mg/dL Ur Specific [place] 1.040 H (1.001-1.035) Urine Protein 3+ H (Negative) Urine Glucose (UA) 3+ H (Negative) Urine Ketones 1+ H (Negative) Urine Blood Small H (Negative) Urine RBC 20 H (0-5) /hpf Urine Mucus Rare H (None) /hpf 09/14/19 09/15/19 Range/Units 20:06 06:55 WBC (3.8-10.6) k/uL Neutrophils # (1.3-7.7) k/uL Lymphocytes # (1.0-4.8) k/uL Glucose (74-99) mg/dL POC Glucose (mg/dL) 334 H 181 H (75-99) mg/dL Ur Specific [place] (1.001-1.035) Urine Protein (Negative) Urine Glucose (UA) (Negative) Urine Ketones (Negative) Urine Blood (Negative) Urine RBC (0-5) /hpf Urine Mucus (None) /hpf
[2019-09-15 15:53] LABS: Glucose,Whole Blood 227 mg/dL (75-99)
[2019-09-15 17:18] LABS: Glucose,Whole Blood 253 mg/dL (75-99)
[2019-09-15] MEDS ORDERED: HYDROmorphone 1 MG/ML 1 ML SYRINGE IVP PRN (18:21)
--- NOTE | 2019-09-15 18:29 | P.OP ---
Date of Procedure: 09/15/19 Procedure(s) Performed: PREOPERATIVE DIAGNOSIS: Acute acalculous cholecystitis POSTOPERATIVE DIAGNOSIS: Same with hydrops and gangrenous changes PROCEDURE: Laparoscopic cholecystectomy SURGEON: Saad EBL: Minimal see anesthesia record ANESTHESIA: Gen. COMPLICATIONS: None OPERATIVE PROCEDURE: The patient was brought and placed on the operating room table in the supine position. The patient was placed under general anesthesia at that time. The abdomen was prepped and draped in the usual sterile fashion. A small curvilinear supraumbilical incision was made. The fascia was grasped with the Geovanna forceps. The fascia was retracted anteriorly. The Veress needle was advanced into the peritoneal cavity. The saline drop test was normal. Insufflation took place up to 15 mmHg. A 5 mm optical trocar was advanced and the peritoneal cavity. 2 additional 5 mm trochars were placed in the right upper quadrant under direct visualization. A 10 mm trocar was advanced into the epigastric incision site. The gallbladder was acutely inflamed. There were gangrenous changes. The fundus was opened and the hydrops fluid was evacuated. An additional 5 mm trocar was placed. Through this a fan retractor was utilized. The gallbladder was retracted superiorly and laterally. The peritoneum overlying the infundibulum was bluntly dissected. The patient's cystic duct was visualized. The junction between the cystic duct common and hepatic duct was identified. The cystic duct was then divided after placement of 3 10 mm clips on the patient's side and one on the specimen side. The cystic artery was identified and clipped as well. A small vessel was seen along the gallbladder fossa and clipped as well. The gallbladder was then removed from the liver bed using the LigaSure device and electrocautery. The gallbladder was then removed from the epigastric trocar site with an Endo Catch bag. The gallbladder fossa was irrigated with saline. There was no evidence of any bleeding or biliary drainage seen. A drain was placed in the gallbladder fossa. This was brought out from the lateral 5 mm trocar site. This was sutured to the skin using a 3-0 silk stitch. The trochars were then removed. The 12 mm trocar site was lengthened in order to remove the specimen. The fascia at the 10 millimeter site was closed using a running 0 Vicryl stitch. The skin at all 4 sites was closed using a 4-0 Monocryl stitch. At the end of this procedure the sponge and needle counts were correct. DISPOSITION: Stable to the recovery room
--- NOTE | 2019-09-15 22:11 | PN ---
PROGRESS NOTE DATE OF DICTATION: 09/15/2019 This patient is a 63-year-old pleasant white male admitted to the hospital with acute onset of severe epigastric and right upper quadrant abdominal pain 2 days ago. He had low-grade fever. He continues to remain symptomatic. He did have a HIDA scan yesterday evening that showed nonvisualization of the gallbladder consistent with acute cholecystitis. The patient was seen by Dr. Nash and was scheduled for laparoscopic cholecystectomy this afternoon. PHYSICAL EXAMINATION: He appears somewhat uncomfortable. Vital signs show a blood pressure of 120/74, pulse rate 78, temperature 99. HEENT examination unremarkable. Conjunctivae pink. Sclerae anicteric. Oral cavity no lesions. NECK: No JVD or lymph node enlargement. CHEST: Clear to auscultation. HEART: Regular rate and rhythm. ABDOMEN: Soft. Severe tenderness in the right upper quadrant area. EXTREMITIES: No pedal edema. NEUROLOGIC: Alert and oriented x3. No focal deficits. LABS: No labs available from this morning. IMPRESSION: 1. Acute cholecystitis. Patient is on broad-spectrum antibiotics, scheduled for gallbladder surgery by Dr. Nash this afternoon. 2. History of diabetes mellitus. 3. History of hypertension and hypercholesteremia. RECOMMENDATIONS: 1. Continue broad-spectrum antibiotics. 2. Patient scheduled for laparoscopic cholecystectomy today. 3. Will follow with you closely. Thank you for this consultation. MMODL / IJN: [id number] /
[2019-09-15 23:04] LABS: Glucose,Whole Blood 213 mg/dL (75-99)
[2019-09-16] MEDS: INSULIN ASPART (NovoLOG) 100 UNIT/ML VIAL SQ SCH ×5 (04:21→20:22)
[2019-09-16] MEDS: PIPERACILLIN-TAZOBACTAM 3.375 GM in SODIUM CHLORIDE 0.9% 100 ML IVPB SCH ×5 (04:33→20:22)
[2019-09-16] MEDS: SODIUM CHLORIDE 0.9% 1,000 ML IV SCH ×2 (04:34→17:20)
[2019-09-16 07:12] LABS: Glucose,Whole Blood 212 mg/dL (75-99)
[2019-09-16] MEDS: INSULN ASP PRT/INSULIN ASPART 100 UNIT/ML 10 ML VIAL SQ SCH ×2 (07:44→20:23)
[2019-09-16] MEDS: CITALOPRAM HYDROBROMIDE 20 MG TAB PO SCH (07:44)
[2019-09-16] MEDS: PANTOPRAZOLE 40 MG/10 ML VIAL IVP SCH ×2 (07:44→20:24)
[2019-09-16] MEDS: HEPARIN SODIUM,PORCINE 5,000 UNIT/ML 1 ML VIAL SQ SCH ×2 (07:44→20:22)
[2019-09-16] MEDS: ASPIRIN 325 MG TAB PO SCH (07:44)
[2019-09-16] MEDS: lisinopriL 20 MG TAB PO SCH (07:45)
[2019-09-16] MEDS: FENOFIBRATE 160 MG TAB PO SCH (07:45)
[2019-09-16] MEDS: FUROSEMIDE 40 MG TAB PO SCH (07:45)
[2019-09-16] MEDS: ATORVASTATIN 20 MG TAB PO SCH (07:45)
[2019-09-16] MEDS: TAMSULOSIN 0.4 MG CAP.ER.24H PO SCH (07:45)
[2019-09-16] MEDS: POTASSIUM CHLORIDE ER 20 MEQ TAB.ER PO SCH (07:45)
[2019-09-16] MEDS: METOPROLOL SUCCINATE (ER) 100 MG TAB.ER.24H PO SCH (07:46)
[2019-09-16] MEDS: FINASTERIDE 5 MG TAB PO SCH (07:46)
[2019-09-16 08:36] LABS: ALT 67 U/L (4-49); AST 41 U/L (17-59); African American GFR (CKD) >90 (>60 ml/min/1.73 sqM); Albumin 3.6 g/dL (3.5-5.0); Alkaline Phosphatase 62 U/L (38-126); Anion Gap 8 mmol/L; Basophils % (A) 0 %; Blood Urea Nitrogen 15 mg/dL (9-20); Calcium 8.6 mg/dL (8.4-10.2); Carbon Dioxide 26 mmol/L (22-30); Chloride 104 mmol/L (98-107); Eosinophils % (A) 0 %; Glucose 230 mg/dL (74-99); HCT 44.5 % (39.0-53.0); HGB 14.4 gm/dL (13.0-17.5); Lymphocytes # (A) 0.8 k/uL (1.0-4.8); Lymphocytes % (A) 7 %; MCH 28.9 pg (25.0-35.0); MCHC 32.4 g/dL (31.0-37.0); MCV 89.3 fL (80.0-100.0); Mean Platelet Volume 7.3; Monocytes # (A) 0.9 k/uL (0-1.0); Monocytes % (A) 8 %; Neutrophils # (A) 9.7 k/uL (1.3-7.7); Neutrophils % (A) 84 %; Non-African American GFR(CKD) 79 (>60 ml/min/1.73 sqM); Platelet Count 179 k/uL (150-450); Potassium 4.3 mmol/L (3.5-5.1); RBC 4.99 m/uL (4.30-5.90); RDW 13.7 % (11.5-15.5); Sodium 138 mmol/L (137-145); Total Bilirubin 0.8 mg/dL (0.2-1.3); Total Protein 6.3 g/dL (6.3-8.2); WBC 11.6 k/uL (3.8-10.6)
--- NOTE | 2019-09-16 09:08 | P.PN ---
Subjective Progress Note Date: 09/16/19 The patient is in the hospital with abdominal pain. He underwent a cholecystectomy yesterdayby Dr Nash. He has some mild right upper quadrant pain. He had a kidney stone on computed tomography scan on initial evaluation. This was in the left mid ureter. He has had no pain whatsoever. I will obtain a KUB to see if there is any movement of the stone. This may be difficult to see Wyatt due to his morbid obesity. Objective - Vital Signs Vital signs: Vital Signs Temp 97.7 F 09/16/19 04:08 Pulse 67 09/16/19 04:08 Resp 18 09/16/19 04:08 BP 133/78 09/16/19 04:08 Pulse Ox 96 09/16/19 04:08 Intake & Output 09/15/19 09/16/19 09/16/19 18:59 06:59 18:59 Intake Total 2100 1300 Output Total 35 250 Balance 2065 1050 Intake: IV 1400 Intake, IV Titration 700 700 Amount Piperacillin-Tazobactam 3 100 100 .375 gm In Sodium Chloride 0.9% 100 ml @ 25 mls/hr IVPB Q8HR [facility] Rx# :[id number] Sodium Chloride 0.9% 1, 600 600 000 ml @ 75 mls/hr IV . [id number] [facility] Rx#:[id number] Oral 600 Output: Drainage 30 Right Abdomen 30 Urine 250 Estimated Blood Loss 5 Other: Voiding Method Toilet Toilet # Voids 2 1 - Labs CBC & Chem 7: 09/16/19 07:30 09/16/19 07:30 Labs: Abnormal Lab Results - Last 24 Hours (Table) 09/15/19 09/15/19 09/15/19 Range/Units 11:31 12:13 15:51 WBC (3.8-10.6) k/uL Neutrophils # (1.3-7.7) k/uL Lymphocytes # (1.0-4.8) k/uL BUN 7 L (9-20) mg/dL Glucose 152 H (74-99) mg/dL POC Glucose (mg/dL) 145 H 227 H (75-99) mg/dL ALT 63 H (4-49) U/L 09/15/19 09/15/19 09/16/19 Range/Units 17:17 23:01 07:10 WBC (3.8-10.6) k/uL Neutrophils # (1.3-7.7) k/uL Lymphocytes # (1.0-4.8) k/uL BUN (9-20) mg/dL Glucose (74-99) mg/dL POC Glucose (mg/dL) 253 H 213 H 212 H (75-99) mg/dL ALT (4-49) U/L 09/16/19 09/16/19 Range/Units 07:30 07:30 WBC 11.6 H (3.8-10.6) k/uL Neutrophils # 9.7 H (1.3-7.7) k/uL Lymphocytes # 0.8 L (1.0-4.8) k/uL BUN (9-20) mg/dL Glucose 230 H (74-99) mg/dL POC Glucose (mg/dL) (75-99) mg/dL ALT 67 H (4-49) U/L
--- NOTE | 2019-09-16 10:04 | XR ---
EXAMINATION TYPE: XR KUB DATE OF EXAM: 09/16/2019 9:39 AM CLINICAL HISTORY: Left ureter stone. TECHNIQUE: Supine KUB images of the abdomen are obtained. COMPARISON: Outside CT abdomen and pelvis 2 days ago. FINDINGS: The small 3 to 4 mm left midureteral calculus on CT less well seen on plain films likely pr oduct of small size and patient's large body habitus. Scattered pelvic fluid was redemonstrated. Overall nonobstructive bowel gas pattern. New Cholecystectomy clips are now present with adjacent pe rcutaneous drainage catheter noted. IMPRESSION: As above.
--- NOTE | 2019-09-16 10:08 | P.PN ---
<Keila Acosta Dominik - Last Filed: 09/16/19 10:05> Subjective Progress Note Date: 09/16/19 CHIEF COMPLAINT: Right upper quadrant abdominal pain HISTORY OF PRESENT ILLNESS: Patient is status post laparoscopic cholecystectomy with Dr. Nash. Postoperative day #1. Patient examined at bedside. Patient states his pain is tolerable this morning. He tolerating clear liquid breakfast without any nausea or vomiting. ROOSEVELT drain intact with serosanguineous drainage. Vital signs are stable. He is afebrile. WBC 11.6. PHYSICAL EXAM: VITAL SIGNS: Reviewed. GENERAL: Well-developed in no acute distress. HEENT: No sclera icterus. Extraocular movements grossly intact. Moist buccal mucosa. Head is atraumatic, normocephalic. ABDOMEN: Soft. Obese. Nondistended. Laparoscopic surgical sites clean dry and intact. ROOSEVELT drain to right side with serosanguineous drainage. NEUROLOGIC: Alert and oriented. Cranial nerves II through XII grossly intact. ASSESSMENT: 1. Right upper quadrant abdominal pain 2. Acute acalculous cholecystitis with hydrops and gangrenous changes PLAN: -Advance diet -Continue antibiotics. Monitor WBC -Monitor ROOSEVELT drain output -Pain control. [place] PRN. -Anticipate discharge home tomorrow Nurse practitioner note has been reviewed by physician. Signing provider agrees with the documented findings, assessment, and plan of care. Objective - Vital Signs Vital signs: Vital Signs Temp 97.7 F 09/16/19 04:08 Pulse 67 09/16/19 04:08 Resp 18 09/16/19 04:08 BP 133/78 09/16/19 04:08 Pulse Ox 96 09/16/19 04:08 Intake & Output 09/15/19 09/16/19 09/16/19 18:59 06:59 18:59 Intake Total 2100 1300 Output Total 35 250 Balance 2065 1050 Intake: IV 1400 Intake, IV Titration 700 700 Amount Piperacillin-Tazobactam 3 100 100 .375 gm In Sodium Chloride 0.9% 100 ml @ 25 mls/hr IVPB Q8HR [facility] Rx# :[id number] Sodium Chloride 0.9% 1, 600 600 000 ml @ 75 mls/hr IV . [id number] [facility] Rx#:[id number] Oral 600 Output: Drainage 30 Right Abdomen 30 Urine 250 Estimated Blood Loss 5 Other: Voiding Method Toilet Toilet # Voids 2 1 - Labs CBC & Chem 7: 09/16/19 07:30 09/16/19 07:30 Labs: Abnormal Lab Results - Last 24 Hours (Table) 09/15/19 09/15/19 09/15/19 Range/Units 11:31 12:13 15:51 WBC (3.8-10.6) k/uL Neutrophils # (1.3-7.7) k/uL Lymphocytes # (1.0-4.8) k/uL BUN 7 L (9-20) mg/dL Glucose 152 H (74-99) mg/dL POC Glucose (mg/dL) 145 H 227 H (75-99) mg/dL ALT 63 H (4-49) U/L 09/15/19 09/15/19 09/16/19 Range/Units 17:17 23:01 07:10 WBC (3.8-10.6) k/uL Neutrophils # (1.3-7.7) k/uL Lymphocytes # (1.0-4.8) k/uL BUN (9-20) mg/dL Glucose (74-99) mg/dL POC Glucose (mg/dL) 253 H 213 H 212 H (75-99) mg/dL ALT (4-49) U/L 09/16/19 09/16/19 Range/Units 07:30 07:30 WBC 11.6 H (3.8-10.6) k/uL Neutrophils # 9.7 H (1.3-7.7) k/uL Lymphocytes # 0.8 L (1.0-4.8) k/uL BUN (9-20) mg/dL Glucose 230 H (74-99) mg/dL POC Glucose (mg/dL) (75-99) mg/dL ALT 67 H (4-49) U/L <Roly Nash - Last Filed: 09/16/19 12:05> Subjective As above. Patient doing well. Pain is much improved. Agree with increasing diet. Agree with plans for IV antibiotics 1 more day. Plan to remove ROOSEVELT drain tomorrow if serosanguineous in color. Follow-up in office 2 weeks. Objective - Vital Signs Vital signs: Vital Signs Temp 97.7 F 09/16/19 04:08 Pulse 67 09/16/19 04:08 Resp 18 07/22/20 04:08 BP 133/78 09/16/19 04:08 Pulse Ox 96 09/16/19 04:08 Intake & Output 09/15/19 09/16/19 09/16/19 18:59 06:59 18:59 Intake Total 2100 1300 Output Total 35 250 Balance 2065 1050 Intake: IV 1400 Intake, IV Titration 700 700 Amount Piperacillin-Tazobactam 3 100 100 .375 gm In Sodium Chloride 0.9% 100 ml @ 25 mls/hr IVPB Q8HR [facility] Rx# :[id number] Sodium Chloride 0.9% 1, 600 600 000 ml @ 75 mls/hr IV . [id number] [facility] Rx#:[id number] Oral 600 Output: Drainage 30 Right Abdomen 30 Urine 250 Estimated Blood Loss 5 Other: Voiding Method Toilet Toilet # Voids 2 1 - Labs CBC & Chem 7: 09/16/19 07:30 09/16/19 07:30 Labs: Abnormal Lab Results - Last 24 Hours (Table) 09/15/19 09/15/19 09/15/19 Range/Units 12:13 15:51 17:17 WBC (3.8-10.6) k/uL Neutrophils # (1.3-7.7) k/uL Lymphocytes # (1.0-4.8) k/uL BUN 7 L (9-20) mg/dL Glucose 152 H (74-99) mg/dL POC Glucose (mg/dL) 227 H 253 H (75-99) mg/dL ALT 63 H (4-49) U/L 09/15/19 09/16/19 09/16/19 Range/Units 23:01 07:10 07:30 WBC (3.8-10.6) k/uL Neutrophils # (1.3-7.7) k/uL Lymphocytes # (1.0-4.8) k/uL BUN (9-20) mg/dL Glucose 230 H (74-99) mg/dL POC Glucose (mg/dL) 213 H 212 H (75-99) mg/dL ALT 67 H (4-49) U/L 09/16/19 09/16/19 Range/Units 07:30 10:50 WBC 11.6 H (3.8-10.6) k/uL Neutrophils # 9.7 H (1.3-7.7) k/uL Lymphocytes # 0.8 L (1.0-4.8) k/uL BUN (9-20) mg/dL Glucose (74-99) mg/dL POC Glucose (mg/dL) 297 H (75-99) mg/dL ALT (4-49) U/L
[2019-09-16 10:52] LABS: Glucose,Whole Blood 297 mg/dL (75-99)
--- NOTE | 2019-09-16 11:52 | P.PN ---
Subjective Progress Note Date: 09/16/19 History of Present Illness This is a 63-year-old male patient of Dr. Rock with past medical history of coronary artery disease status post [address] Meza, his education coordinator is Dr. Cheney, history of atrial fibrillation, diabetes mellitus type 2, hypertension, hyperlipidemia, mild intermittent asthma. Patient states that he initially developed abdominal pain under his ribs. He denies any nausea vomiting. He did have a normal bowel movement yesterday. Patient also states the pain started in the front and he also has had lower back pain from doing work but does not associated with abdominal pain. He has had no previous abdominal surgeries. He is tender in the right upper quadrant. No epigastric tenderness. Patient was initially seen at outside facility and transferred to [facility] for further evaluation. CAT scan was reported as 5 mm stone in the mid ureter, a distended stomach with concern for gastric outlet obstruction. Temperature max 100.2, heart rate 90, blood pressure 178/98, pulse ox 95% on room air. WBC 12.8, otherwise blood sugar 224, normal electrolytes and renal function, normal function tests. Lipase 34. Urinalysis clear with nitrate and leukoesterase negative. 3+ protein glucose and ketones 1+. Patient to be admitted to the MedSur floor and consult requested with GI and urology. Abdominal ultrasound ordered. 09/14: Abdominal ultrasound was limited, hepatis steatosis, hepatomegaly, probab le cortical cyst right kidney. HIDA scan suggestive of cystic duct obstruction and acute cholecystitis. No evidence of common bile duct obstruction. A consult was placed with Dr. Nash and patient is scheduled for laparoscopic cholecystectomy today. Patient has been afebrile, heart rate 7097, blood pressure 168/87, pulse ox 95 on room air. Lab work this morning revealed electrolytes normal, creatinine 0.74, blood sugars running between 145 and 334. Coronavirus PCR not detected. 09/15: Patient underwent laparoscopic cholecystectomy with Dr. Nash yesterday. ROOSEVELT drain remains in place. Diet has been advanced by surgery. He has had no postop complications. Patient has not had a bowel movement yet. The patient states that his right upper quadrant pain has resolved. He has been afebrile, heart rate 67, blood pressure 133/78, pulse ox 96% on room air. Repeat blood work revealed IVC 11.6, hemoglobin 14.4. Electrolytes and renal function normal. Blood sugar running between 212 and 297. Metformin will be resumed and insulin 7030 increased to 70 units twice daily. KUB this morning revealed small 3-4 mm left mid ureteral calculus not well seen. Overall nonobstructive gas pattern. KUB was ordered by Dr. Benítez. Incentive spirometer reaching 1000 mls. Plan to monitor patient overnight, increase activity and discharge home tomorrow. Review of Systems Constitutional: No fever, no chills, no night sweats. No weight change. No weakness, fatigue or lethargy. No daytime sleepiness. EENT: No headache. No blurred vision or double vision, no loss of vision. No loss of Hearing, no ringing in the ears, no dizziness. No nasal drainage or congestion. No epistaxis. No sore throat. Lungs: No shortness of breath, cough, no sputum production. No wheezing. Cardiovascular: No chest pain, no lower extremity edema. No palpitations. No paroxysmal nocturnal dyspnea. No orthopnea. No lightheadedness or dizziness. No syncopal episodes. Abdominal: Denies right upper quadrant abdominal pain. No nausea, vomiting. No diarrhea. No constipation. No bloody or tarry stools. Genitourinary: No dysuria, increased frequency, urgency. No urinary retention. Musculoskeletal: No myalgias. No muscle weakness, no gait dysfunction, no frequent falls. No back pain. No neck pain. Integumentary: No wounds, no lesions. No rash or pruritus. No unusual bruising. No change in hair or nails. Neurologic: No aphasia. No facial droop. No change in mentation. No head injury. No headache. No paralysis. No paresthesia. Psychiatric: No depression. No anxiety. No mood swings. Endocrine: No abnormal blood sugars. No weight change. No excessive sweating or thirst. No cold intolerance. Physical Examination Gen: This is a 63-year-old morbidly obese male. He is resting in chair and appears to be somewhat uncomfortable secondary to pain. HEENT: Head is atraumatic, normocephalic. Pupils equal, round. Sclerae is an icteric. NECK: Supple. No JVD. No lymphadenopathy. No thyromegaly. LUNGS: Clear to auscultation. No wheezes or rhonchi. No intercostal retractions. HEART: Regular rate and rhythm. No murmur. ABDOMEN: Soft. Bowel sounds are present. No masses. No abdominal tenderness. Puncture site show no sign of infection, no significant drainage, erythema or edema. ROOSEVELT drain in place with serosanguineous drainage. EXTREMITIES: No pedal edema. No calf tenderness. Dorsalis pedis palpable bilaterally. NEUROLOGICAL: Patient is awake, alert and oriented x3. Cranial nerves 2 through 12 are grossly intact. Assessment and Plan 1. Possible gastric outlet obstruction, as reported on CAT scan. No suspected obstruction. 2. Right upper quadrant tenderness secondary to acute cholecystitis status post laparoscopic cholecystectomy. Consult with Dr. Nash appreciated. Diet adva nced. 3. Renal stone. Consult with urology appreciated. 4. Hypertension. Continue Toprol-XL, benazepril 40 mg daily, Lasix 40 mg daily. 5. Hyperlipidemia. Statin. 6. History of coronary artery disease. Continue aspirin 325 mg daily, Lipitor 20 mg daily, Toprol-XL 100 mg daily. 7. Benign prostatic hypertrophy. Continue Flomax 0.4 mg daily and Proscar 5 mg daily. 8. History of atrial fibrillation, paroxysmal. Continue Toprol-XL. 9. Mild intermittent asthma, no exacerbation. 10. Diabetes mellitus type 2 uncontrolled with hyperglycemia. Continue NovoLog Mix 70/30 increased to 70 units twice daily, NovoLog scale. Resume metformin 1000 mg twice daily. 11. Recurrent depression. Continue Celexa 40 mg daily. 12. Gastroesophageal reflux disease, GI prophylaxis. Continue Protonix. 13. DVT prophylaxis. Heparin subcu. 14. COVID-19 infection not present. Discharge plan: Return home on . Impression and plan of care have been directed as dictated by the signing physician. Lamar Wright nurse practitioner acting as scribe for signing physician. Objective - Vital Signs Vital signs: Vital Signs Temp 97.7 F 09/16/19 04:08 Pulse 67 09/16/19 04:08 Resp 18 09/16/19 04:08 BP 133/78 09/16/19 04:08 Pulse Ox 96 09/16/19 04:08 Intake & Output 09/15/19 09/16/19 09/16/19 18:59 06:59 18:59 Intake Total 2100 1300 Output Total 35 250 Balance 2065 1050 Intake: IV 1400 Intake, IV Titration 700 700 Amount Piperacillin-Tazobactam 3 100 100 .375 gm In Sodium Chloride 0.9% 100 ml @ 25 mls/hr IVPB Q8HR [facility] Rx# :[id number] Sodium Chloride 0.9% 1, 600 600 000 ml @ 75 mls/hr IV . [id number] [facility] Rx#:[id number] Oral 600 Output: Drainage 30 Right Abdomen 30 Urine 250 Estimated Blood Loss 5 Other: Voiding Method Toilet Toilet # Voids 2 1 - Labs CBC & Chem 7: 09/16/19 07:30 09/16/19 07:30 Labs: Abnormal Lab Results - Last 24 Hours (Table) 09/15/19 09/15/19 09/15/19 Range/Units 11:31 12:13 15:51 WBC (3.8-10.6) k/uL Neutrophils # (1.3-7.7) k/uL Lymphocytes # (1.0-4.8) k/uL BUN 7 L (9-20) mg/dL Glucose 152 H (74-99) mg/dL POC Glucose (mg/dL) 145 H 227 H (75-99) mg/dL ALT 63 H (4-49) U/L 09/15/19 09/15/19 09/16/19 Range/Units 17:17 23:01 07:10 WBC (3.8-10.6) k/uL Neutrophils # (1.3-7.7) k/uL Lymphocytes # (1.0-4.8) k/uL BUN (9-20) mg/dL Glucose (74-99) mg/dL POC Glucose (mg/dL) 253 H 213 H 212 H (75-99) mg/dL ALT (4-49) U/L 09/16/19 09/16/19 Range/Units 07:30 07:30 WBC 11.6 H (3.8-10.6) k/uL Neutrophils # 9.7 H (1.3-7.7) k/uL Lymphocytes # 0.8 L (1.0-4.8) k/uL BUN (9-20) mg/dL Glucose 230 H (74-99) mg/dL POC Glucose (mg/dL) (75-99) mg/dL ALT 67 H (4-49) U/L
--- NOTE | 2019-09-16 15:53 | PN ---
PROGRESS NOTE DATE OF DICTATION: 09/16/2019 Patient is a 63-year-old pleasant white male admitted with acute cholecystitis, status post gallbladder surgery yesterday. He is feeling much better. He still has some epigastric pain. No nausea. No vomiting. PHYSICAL EXAMINATION: He appears comfortable. No apparent distress. VITAL SIGNS: Stable. Blood pressure is 133/78. Pulse rate 67, temperature 97.7. HEENT examination unremarkable. Conjunctivae pink. Sclerae anicteric. Oral cavity no lesions. NECK: No JVD or lymph node enlargement. CHEST: Clear to auscultation. HEART: Regular rate and rhythm. ABDOMEN: Soft. There was mild tenderness in the epigastric area. ROOSEVELT drain in place which has about 20 mL of serosanguineous fluid. EXTREMITIES: No pedal edema. NEUROLOGIC: Alert and oriented x3. No focal deficits. LABS: Labs from today show WBC 11.6, hemoglobin 14.4, platelets normal. Basic metabolic panel is within normal limits. IMPRESSION: Acute gangrenous cholecystitis, status post laparoscopic cholecystectomy with ROOSEVELT drain placement by Dr. Nash yesterday. He is doing much better today. Still has mild abdominal pain and leukocytosis. Remains on broad-spectrum antibiotics. RECOMMENDATIONS: 1. Continue with antibiotics. 2. Clear liquid diet. 3. Further management by Surgical Service. 4. Will sign off at this time. Please call us if needed. Thank you for this consultation. JERRODL / AVERYN: [id number] /
[2019-09-16 16:53] LABS: Glucose,Whole Blood 203 mg/dL (75-99)
[2019-09-16 20:08] LABS: Glucose,Whole Blood 292 mg/dL (75-99)
[2019-09-16] MEDS: metFORMIN 500 MG TAB PO SCH (20:24)
[2019-09-16 20:34] VITALS: RESP 18; TEMP 97.6
[2019-09-17] MEDS: HYDROcodone/APAP 5-325MG 1 EACH TAB PO PRN ×2 (02:55→14:02)
[2019-09-17] MEDS: PIPERACILLIN-TAZOBACTAM 3.375 GM in SODIUM CHLORIDE 0.9% 100 ML IVPB SCH ×2 (04:17→12:59)
[2019-09-17] MEDS: SODIUM CHLORIDE 0.9% 1,000 ML IV SCH (05:20)
[2019-09-17 05:44] VITALS: BP 126/73; PULSE 57
--- NOTE | 2019-09-17 06:49 | P.PN ---
Progress Note - Text Progress Note Date: 09/17/19 the patient i as from his possible left ureteral stone The kub doesnt show any obvious stone Would just observe as long as he is asx
[2019-09-17 06:56] LABS: Glucose,Whole Blood 109 mg/dL (75-99)
[2019-09-17] MEDS: FENOFIBRATE 160 MG TAB PO SCH (07:12)
[2019-09-17] MEDS: PANTOPRAZOLE 40 MG/10 ML VIAL IVP SCH (07:12)
[2019-09-17] MEDS: ATORVASTATIN 20 MG TAB PO SCH (07:12)
[2019-09-17] MEDS: METOPROLOL SUCCINATE (ER) 100 MG TAB.ER.24H PO SCH (07:12)
[2019-09-17] MEDS: CITALOPRAM HYDROBROMIDE 20 MG TAB PO SCH (07:12)
[2019-09-17] MEDS: HEPARIN SODIUM,PORCINE 5,000 UNIT/ML 1 ML VIAL SQ SCH (07:13)
[2019-09-17] MEDS: TAMSULOSIN 0.4 MG CAP.ER.24H PO SCH (07:13)
[2019-09-17] MEDS: ASPIRIN 325 MG TAB PO SCH (07:13)
[2019-09-17] MEDS: lisinopriL 20 MG TAB PO SCH (07:13)
[2019-09-17] MEDS: metFORMIN 500 MG TAB PO SCH (07:13)
[2019-09-17] MEDS: FUROSEMIDE 40 MG TAB PO SCH (07:13)
[2019-09-17] MEDS: POTASSIUM CHLORIDE ER 20 MEQ TAB.ER PO SCH (07:13)
[2019-09-17] MEDS: FINASTERIDE 5 MG TAB PO SCH (07:13)
[2019-09-17] MEDS: INSULIN ASPART (NovoLOG) 100 UNIT/ML VIAL SQ SCH ×2 (07:20→12:59)
[2019-09-17] MEDS: INSULN ASP PRT/INSULIN ASPART 100 UNIT/ML 10 ML VIAL SQ SCH (08:03)
[2019-09-17 08:06] LABS: Basophils % (A) 0 %; Eosinophils # (A) 0.2 k/uL (0-0.7); Eosinophils % (A) 3 %; HCT 41.4 % (39.0-53.0); HGB 13.6 gm/dL (13.0-17.5); Lymphocytes # (A) 1.1 k/uL (1.0-4.8); Lymphocytes % (A) 15 %; MCH 28.7 pg (25.0-35.0); MCHC 32.7 g/dL (31.0-37.0); MCV 87.6 fL (80.0-100.0); Mean Platelet Volume 7.4; Monocytes # (A) 0.8 k/uL (0-1.0); Monocytes % (A) 10 %; Neutrophils # (A) 5.2 k/uL (1.3-7.7); Neutrophils % (A) 69 %; Platelet Count 196 k/uL (150-450); RBC 4.73 m/uL (4.30-5.90); RDW 13.8 % (11.5-15.5); WBC 7.5 k/uL (3.8-10.6)
--- NOTE | 2019-09-17 09:31 | P.DS ---
Providers Date of admission: 09/14/19 09:01 Expected date of discharge: 09/17/19 Attending physician: Tip Rock Consults: 09/14/19 09:04 Consult Physician Stat Consulting Provider: Haylie Cheney Consult Reason/Comments: Possible gastric outlet obstruction Do you want consulting provider notified?: Yes 09/14/19 09:16 Consult Physician Routine Consulting Provider: Clinton Benítez Consult Reason/Comments: renal stone, prostate lesion Do you want consulting provider notified?: Yes 09/14/19 13:49 Consult Physician Routine Consulting Provider: Roly Nash Consult Reason/Comments: right upper quadrant pain, febrile Do you want consulting provider notified?: Yes Primary care physician: [facility] Course: History of Present Illness This is a 63-year-old male patient of Dr. Rock with past medical history of coronary artery disease status post [address] Meza, his information security risk analyst is Dr. Cheney, history of atrial fibrillation, diabetes mellitus type 2, hypertension, hyperlipidemia, mild intermittent asthma. Patient states that he initially developed abdominal pain under his ribs. He denies any nausea vomiting. He did have a normal bowel movement yesterday. Patient also states the pain started in the front and he also has had lower back pain from doing work but does not associated with abdominal pain. He has had no previous abdominal surgeries. He is tender in the right upper quadrant. No epigastric tenderness. Patient was initially seen at outside facility and transferred to [facility] for further evaluation. CAT scan was reported as 5 mm stone in the mid ureter, a distended stomach with concern for gastric outlet obstruction. Temperature max 100.2, heart rate 90, blood pressure 178/98, pulse ox 95% on room air. WBC 12.8, otherwise blood sugar 224, normal electrolytes and renal function, normal function tests. Lipase 34. Urinalysis clear with nitrate and leukoesterase negative. 3+ protein glucose and ketones 1+. Patient to be admitted to the MedSur floor and consult requested with GI and urology. Abdominal ultrasound ordered. 09/14: Abdominal ultrasound was limited, hepatis steatosis, hepatomegaly, probable cortical cyst right kidney. HIDA scan suggestive of cystic duct obstruction and acute cholecystitis. No evidence of common bile duct obstructi on. A consult was placed with Dr. Nash and patient is scheduled for laparoscopic cholecystectomy today. Patient has been afebrile, heart rate 7097, blood pressure 168/87, pulse ox 95 on room air. Lab work this morning revealed electrolytes normal, creatinine 0.74, blood sugars running between 145 and 334. Coronavirus PCR not detected. 09/15: Patient underwent laparoscopic cholecystectomy with Dr. Nash yesterday. ROOSEVELT drain remains in place. Diet has been advanced by surgery. He has had no postop complications. Patient has not had a bowel movement yet. The patient states that his right upper quadrant pain has resolved. He has been afebrile, heart rate 67, blood pressure 133/78, pulse ox 96% on room air. Repeat blood work revealed IVC 11.6, hemoglobin 14.4. Electrolytes and renal function normal. Blood sugar running between 212 and 297. Metformin will be resumed and insulin 7030 increased to 70 units twice daily. KUB this morning revealed small 3-4 mm left mid ureteral calculus not well seen. Overall nonobstructive gas pattern. KUB was ordered by Dr. Benítez. Incentive spirometer reaching 1000 mls. Plan to monitor patient overnight, increase activity and discharge home tomorrow. 09/16: Patient continues to deny any abdominal pain. He is eating and tolerating diet. He did have a bowel movement this morning. He is voiding without difficulty. ROOSEVELT drain remains in place. He has been afebrile, heart rate 57, blood pressure 126/73, pulse ox 98% on 2 L nasal cannula. Repeat blood work reveals normal CBC, blood sugars between 109 and 292. Patient will be prepared for discharge home once cleared by general surgery. Assessment and Plan 1. Possible gastric outlet obstruction, as reported on CAT scan. No suspected obstruction. 2. Right upper quadrant tenderness secondary to acute cholecystitis status post laparoscopic cholecystectomy. 3. Renal stone. 4. Hypertension. 5. Hyperlipidemia. 6. History of coronary artery disease. 7. Benign prostatic hypertrophy. 8. History of atrial fibrillation, paroxysmal. 9. Mild intermittent asthma, no exacerbation. 10. Diabetes mellitus type 2 uncontrolled with hyperglycemia. 11. Recurrent depression. 12. Gastroesophageal reflux disease 13. COVID-19 infection not present. Discharge plan: Return home Impression and plan of care have been directed as dictated by the signing physician. Lamar Wright nurse practitioner acting as scribe for signing physician. Patient Condition at Discharge: Good Plan - Discharge Summary Discharge Rx Participant: No New Discharge Prescriptions: New Hydrocodone/Acetaminophen [[place] 5-325] 1 tab PO Q6HR PRN #10 tab PRN Reason: Pain Levofloxacin [Levaquin] 500 mg PO DAILY 5 Days #5 tab Continue Tamsulosin [Flomax] 0.4 mg PO DAILY Pantoprazole Sodium [Protonix] 40 mg PO DAILY Metoprolol Succinate [Toprol XL] 100 mg PO DAILY Insulin Aspart Protam & Aspart [NovoLOG MIX 70-30 Flexpen] 65 unit SQ BID Dulaglutide [Trulicity] 1.5 mg SQ TH Aspirin EC [Ecotrin] 325 mg PO DAILY metFORMIN HCL [Glucophage] 1,000 mg PO BID Potassium Chloride [Klor-Con 10] 20 meq PO DAILY Furosemide [Lasix] 40 mg PO DAILY Finasteride [Proscar] 5 mg PO DAILY Fenofibrate Nanocrystallized [Fenofibrate] 145 mg PO DAILY Citalopram Hydrobromide [CeleXA] 40 mg PO DAILY Benazepril HCl 40 mg PO DAILY Atorvastatin [Lipitor] 20 mg PO DAILY Discharge Medication List Aspirin EC [Ecotrin] 325 mg PO DAILY 09/14/19 [History] Atorvastatin [Lipitor] 20 mg PO DAILY 09/14/19 [History] Benazepril HCl 40 mg PO DAILY 09/14/19 [History] Citalopram Hydrobromide [CeleXA] 40 mg PO DAILY 09/14/19 [History] Dulaglutide [Trulicity] 1.5 mg SQ TH 09/14/19 [History] Fenofibrate Nanocrystallized [Fenofibrate] 145 mg PO DAILY 09/14/19 [History] Finasteride [Proscar] 5 mg PO DAILY 09/14/19 [History] Furosemide [Lasix] 40 mg PO DAILY 09/14/19 [History] Insulin Aspart Protam & Aspart [NovoLOG MIX 70-30 Flexpen] 65 unit SQ BID 09/14/19 [History] Metoprolol Succinate [Toprol XL] 100 mg PO DAILY 09/14/19 [History] Pantoprazole Sodium [Protonix] 40 mg PO DAILY 09/14/19 [History] Potassium Chloride [Klor-Con 10] 20 meq PO DAILY 09/14/19 [History] Tamsulosin [Flomax] 0.4 mg PO DAILY 09/14/19 [History] metFORMIN HCL [Glucophage] 1,000 mg PO BID 09/14/19 [History] Hydrocodone/Acetaminophen [[place] 5-325] 1 tab PO Q6HR PRN #10 tab 09/16/19 [Rx] Levofloxacin [Levaquin] 500 mg PO DAILY 5 Days #5 tab 09/17/19 [Rx] Follow up Appointment(s)/Referral(s): Roly Nash MD [Medical Doctor] - 09/30/19 3:45 pm Tip Rock MD [Primary Care Provider] - 09/29/19 2:45 pm Clinton Benítez MD [STAFF PHYSICIAN] - 10/06/19 10:40 am Patient Instructions/Handouts: Hydrocodone/Acetaminophen (By mouth), Levofloxacin (By mouth), Surgical Site Infections (DC), Laparoscopic Cholecystectomy (DC) Activity/Diet/Wound Care/Special Instructions: No driving while taking [place] No lifting over 10 pounds You may shower. No soaking or tub baths Very light activity until you are reevaluated at your follow up appointment with your surgeon Discharge Disposition: HOME SELF-CARE
--- NOTE | 2019-09-17 10:56 | P.PN ---
Subjective Progress Note Date: 09/17/19 CHIEF COMPLAINT: Right upper quadrant abdominal pain HISTORY OF PRESENT ILLNESS: Patient is status post laparoscopic cholecystectomy with Dr. Nash. Postoperative day #2. Patient examined at bedside. Patient states his pain is tolerable this morning. He is tolerating diet without any nausea or vomiting. ROOSEVELT drain intact with serosanguineous drainage. Vital signs are stable. He is afebrile. PHYSICAL EXAM: VITAL SIGNS: Reviewed. GENERAL: Well-developed in no acute distress. HEENT: No sclera icterus. Extraocular movements grossly intact. Moist buccal mucosa. Head is atraumatic, normocephalic. ABDOMEN: Soft. Obese. Nondistended. Laparoscopic surgical sites clean dry and intact. ROOSEVELT drain to right side with serosanguineous drainage. NEUROLOGIC: Alert and oriented. Cranial nerves II through XII grossly intact. ASSESSMENT: 1. Right upper quadrant abdominal pain 2. Acute acalculous cholecystitis with hydrops and gangrenous changes PLAN: -Continue diet as tolerated -Pain control -Discontinue ROOSEVELT drain -Stable for discharge home today from a surgical standpoint Nurse practitioner note has been reviewed by physician. Signing provider agrees with the documented findings, assessment, and plan of care. Objective - Vital Signs Vital signs: Vital Signs Temp 97.6 F 09/17/19 05:00 Pulse 57 L 09/17/19 05:00 Resp 18 09/17/19 05:00 BP 126/73 09/17/19 05:00 Pulse Ox 98 09/17/19 05:00 Intake & Output 09/16/19 09/17/19 09/17/19 18:59 06:59 18:59 Intake Total 520 650 120 Output Total 40 10 Balance 480 640 120 Intake: Intake, IV Titration 400 450 Amount Piperacillin-Tazobactam 3 100 .375 gm In Sodium Chloride 0.9% 100 ml @ 25 mls/hr IVPB Q8H [facility] Rx#: [id number] Sodium Chloride 0.9% 1, 300 450 000 ml @ 75 mls/hr IV . [id number] [facility] Rx#:[id number] Oral 120 200 120 Output: Drainage 40 10 Right Abdomen 40 10 Other: Voiding Method Toilet Urinal # Voids 3 1 # Bowel Movements 1 - Labs CBC & Chem 7: 09/17/19 07:19 09/16/19 07:30 Labs: Abnormal Lab Results - Last 24 Hours (Table) 09/16/19 09/16/19 09/16/19 Range/Units 10:50 16:52 20:03 POC Glucose (mg/dL) 297 H 203 H 292 H (75-99) mg/dL 09/17/19 Range/Units 06:51 POC Glucose (mg/dL) 109 H (75-99) mg/dL
[2019-09-17 11:19] LABS: Glucose,Whole Blood 130 mg/dL (75-99)
--- NOTE | 2019-09-17 21:06 | PN ---
PROGRESS NOTE DATE OF DICTATION: 09/17/2019 This patient is a 63-year-old pleasant white male admitted to the hospital with acute cholecystitis, status post laparoscopic cholecystectomy with ROOSEVELT drain placement 2 days ago. He is doing much better. He still has some abdominal pain. ROOSEVELT drain has been removed today. The patient is tolerating regular diet well. PHYSICAL EXAMINATION: Vital signs are stable. Blood pressure is 112/86, pulse rate 57, temperature 97.6. HEENT examination unremarkable. Conjunctivae pink. Sclerae anicteric. Oral cavity no lesions. NECK: No JVD or lymph node enlargement. CHEST: Clear to auscultation. HEART: Regular rate and rhythm. ABDOMEN: Soft. Severe tenderness in the right upper quadrant area. Rest of the abdomen was benign. Bowel sounds are positive. No organomegaly. EXTREMITIES: No pedal edema. NEUROLOGIC: Alert and oriented x3. No focal deficits. LABS: WBC 7.5, hemoglobin 13.6, platelets normal. Basic metabolic panel normal. IMPRESSION: Acute gangrenous cholecystitis, status post laparoscopic cholecystectomy with ROOSEVELT drain placement 2 days ago. Patient doing much better. ROOSEVELT drain was removed today. Remains on antibiotics. Still has some right upper quadrant abdominal pain, but doing much better. Tolerating regular diet well. RECOMMENDATIONS: 1. Continue with antibiotics. 2. Patient is being discharged home today. He was advised to follow up in the office if needed. Thank you for this consultation. JERRODL / AVERYN: [id number] /
== END 2019-09-17 14:27 | disposition home or self-care (01) | DRG 418 ==
LOC: EC 06:34 → 5NMEDONC 09:01
PROVIDERS: ADMIT Internal Medicine Geriatric Medicine; ATTEND Internal Medicine Geriatric Medicine
PROC: 0FT44ZZ Resection of Gallbladder, Percutaneous Endoscopic Approach (ICD-10-PCS; principal; 2019-09-15 10:50)
DX: K81.0 Acute cholecystitis (principal); F33.9 Major depressive disorder, recurrent, unspecified; N20.2 Calculus of kidney with calculus of ureter; Z68.41 Body mass index [BMI] 40.0-44.9, adult; K82.1 Hydrops of gallbladder; K82.A1 Gangrene of gallbladder in cholecystitis; R16.0 Hepatomegaly, not elsewhere classified; K76.0 Fatty (change of) liver, not elsewhere classified; E11.65 Type 2 diabetes mellitus with hyperglycemia; N40.0 Benign prostatic hyperplasia without lower urinary tract symptoms; E66.01 Morbid (severe) obesity due to excess calories; E78.00 Pure hypercholesterolemia, unspecified; E78.5 Hyperlipidemia, unspecified; I10 Essential (primary) hypertension; I25.10 Atherosclerotic heart disease of native coronary artery without angina pectoris; I48.0 Paroxysmal atrial fibrillation; J45.20 Mild intermittent asthma, uncomplicated; K21.9 Gastro-esophageal reflux disease without esophagitis; N28.1 Cyst of kidney, acquired; Z20.828 Contact with and (suspected) exposure to other viral communicable diseases; Z79.4 Long term (current) use of insulin; Z79.82 Long term (current) use of aspirin; Z79.899 Other long term (current) drug therapy; Z87.442 Personal history of urinary calculi; Z87.891 Personal history of nicotine dependence; Z95.5 Presence of coronary angioplasty implant and graft; Z82.49 Family history of ischemic heart disease and other diseases of the circulatory system; Z83.3 Family history of diabetes mellitus
CPT/HCPCS: 36415; 74018; 76705; 78226; 80053; 81001; 83605; 83690; 85025; 88304; 96361; 96365; 96375; 99285

== ENCOUNTER → 2019-10-06 | Outpatient (CLI) | payer MEDICARE ==
--- NOTE | 2019-10-06 11:51 | XR ---
EXAMINATION TYPE: XR abdomen 1V DATE OF EXAM: 10/06/2019 COMPARISON: 09/16/2019 HISTORY: Pain TECHNIQUE: One view abdominal series FINDINGS: The osseous structures are intact. The bowel gas pattern is nonspecific. Arthropathy of the hips wit h hypertrophic change of the acetabulum could be associated with femoral acetabular impingement. No suspicious calcifications overlying the renal outlines. There is a 3 mm calcification in the upper left hemipelvis, which could be within the distal ureter measuring a diameter 3 mm. IMPRESSION: 1. 3 mm calcification left upper hemipelvis could be within the course of the distal left ureter chetan elate clinically.
== END | disposition home or self-care (01) ==
LOC: RADXRMAIN 11:26
PROVIDERS: ATTEND Internal Medicine Geriatric Medicine
DX: N20.1 Calculus of ureter (principal)
CPT/HCPCS: 74018

== ENCOUNTER → 2019-10-20 | Outpatient (CLI) | payer MEDICARE ==
--- NOTE | 2019-10-20 11:04 | XR ---
EXAMINATION TYPE: XR KUB DATE OF EXAM: 10/20/2019 HISTORY: Pain Comparison: 09/16/2019 Single KUB is submitted for interpretation. Findings: Right renal calculi: None Visualized. Right ureteral calculi: None Visualized. Left renal calculi: None Visualized. Left ureteral calculi: 3 to 4 mm calculus left mid ureter seen on CT of 09/14/2019 is not clearly red emonstrated at this time. Pelvic calcifications: Stable pelvic calcifications felt to reflect phlebolith formation. Bowel gas pattern is unremarkable. No free air. No mass effects. IMPRESSION: 1. 3 to 4 mm calculus left mid ureter seen on CT of 09/14/2019 is not clearly redemonstrated at this t lachelle.
== END | disposition home or self-care (01) ==
LOC: RADXRMAIN 09:55
PROVIDERS: ATTEND Urology
DX: N20.1 Calculus of ureter (principal)
CPT/HCPCS: 74018